=== PATIENT | male | born 1970 | race African-American/Black ===

== ENCOUNTER 2023-09-26 23:35 | Inpatient (IN) ==
[2023-09-27] MEDS: SODIUM CHLORIDE 0.9% 500 ML IV SCH ×2 (00:31→02:11)
[2023-09-27 00:44] LABS: Basophils # (auto) 0.05 K/uL (0.00-0.20); Basophils % (auto) 0.6 %; Eosinophils # (auto) 0.18 K/uL (0.00-0.50); Eosinophils % (auto) 2.1 %; Hematocrit (blood only) 44.9 % (42.0-52.0); Hemoglobin 15.7 g/dl (14.0-18.0); Immature Granulocytes # (auto) 0.03 K/uL (0.01-0.20); Immature Granulocytes % (auto) 0.4 %; Lymphocytes # (auto) 3.06 K/uL (1.20-3.40); Lymphocytes % (auto) 36.4 %; Mean Corpuscular Hemoglobin 29.6 pg (25.0-34.0); Mean Corpuscular Volume 84.7 fL (80.0-100.0); Mean Platelet Volume 11.6 fL (9.4-12.4); Monocytes # (auto) 0.27 K/uL (0.11-0.59); Monocytes % (auto) 3.2 %; Neutrophils # (auto) 4.82 K/uL (1.40-6.50); Neutrophils % (auto) 57.3 %; Platelet Count 273 K/uL (130-400); RDW Coefficient of Variation 13.6 % (11.5-14.5); White Blood Count 8.41 K/ul (4.8-10.8)
[2023-09-27 00:54] LABS: Albumin Globulin Ratio 1.5 (0.9-2); Albumin Level 4.8 gm/dl (3.4-5.0); BUN Creatinine Ratio 12.3 (10-20); Bilirubin,Total 0.4 mg/dl (0.2-1.0); Creatinine Clr Calc Pharmacy 113.9 ml/min; Est GFR (African American) 91.8 ml/min; Est GFR (Non-African American) 79.2 ml/min; Globulin 3.1 gm/dl (2.5-4.0); Potassium 4.2 mmol/L (3.5-5.1); Total Protein 7.9 gm/dl (6.0-8.3)
[2023-09-27 01:11] LABS: INR 0.9 (0.9-1.1); Partial Thromboplastin Time 28 Seconds (21-31); Prothrombin Time 10.3 Seconds (9.0-12.0)
[2023-09-27] MEDS ORDERED: SODIUM CHLORIDE 0.9% 500 ML IV ONE (02:04)
[2023-09-27] MEDS ORDERED: KETOROLAC TROMETHAMINE 15 MG/ML VIAL IV ONE (02:04)
[2023-09-27] MEDS ORDERED: METOPROLOL TARTRATE 1 MG/ML VIAL IV STA ×3 (02:04→03:46)
[2023-09-27 02:08] LABS: Magnesium 1.9 mg/dl (1.7-2.4)
[2023-09-27] MEDS ORDERED: SODIUM CHLORIDE 0.9% 1,000 ML IV SCH (02:15)
--- NOTE | 2023-09-27 03:41 | Emergency Department Note ---
Impression & Plan Atrial flutter with rapid ventricular response, Acute low back pain, Diabetes ED Provider Note NAME: JESSICA LANDERS AGE: 53 SEX: Male INFORMANT: Patient ED PROVIDER(S): Bismark Guevara MD CHIEF COMPLAINT: Palpitations PLAN: Disposition: Admitted Outpatient prescription management: none Referral: None MEDICAL DECISION MAKING: Patient presented because of palpitations and chest discomfort. He was found to have a rapid atrial flutter on examination and ECG. Cardiac monitoring concurred. Patient also noted concerning pain in his back and bladder dysfunction over the last several days. MRI was ordered. Patient was given Toradol. This did help his pain. Patient was given 3 doses of IV metoprolol and still have persistent heart rates of 140. Patient was also given a Cardizem bolus and drip. He is not stable to go to MRI at this point in time given his persistent tachycardia and need for treatment. Further management in the hospital will be necessary. Patient and are in agreement. Consultation was made with Dr. Ramon Bennett of the [facility] service. Patient was evaluated in the ER for further management. Care/management discussed with: dealer relationship manager Level of care consideration(s): After review of the information above and other included data, I feel the patient requires escalation of care to admission Triage Nursing notes: reviewed and agree them. Vital Signs: reviewed and remarkable for tachycardia Additional History obtained from: none Chronic Medical/Social Conditions affecting care: Diabetes Prior/ Outside/ External records reviewed: none Differential Diagnosis: Premature contractions, electrolyte abnormality, cardiac dysrhythmia, thyroid dysfunction, pulmonary embolism, infection, gastrointestinal, as well as other pathologies. Musculoskeletal, disc herniation, fracture, metastatic disease, cord compression, discitis, sciatica, cauda equina, infection, aortic disease, renal colic, gastrointestinal, as well as other pathologies. Diagnostics, independently interpreted by me: ECG: Lead ECG reveals atrial flutter rapid ventricular response at [address] elevation. Cardiac Monitoring: Cardiac monitoring ordered by me: The patient was placed on continuous cardiac monitoring and observed. It revealed atrial flutter at 140 bpm. Medical decision rules: none Imaging studies: Chest x-ray. Findings: A chest x-ray was performed and revealed no pneumothorax, effusion, infiltrate, pulmonary edema, free air under the diaphragm, or wide mediastinum. Impression: No acute disease. HPI: 53 year old Male arrives for evaluation of palpitations. This started about 3 hours ago and is noted to have woke patient from sleep. The patient also notes the following associated symptoms, left-sided chest pain, shortness of breath. Patient states he is also had lower lumbar back pain for about a week that has been escalating. He rated that as an 8 out of 10. Patient states he has been taking Tylenol without success. Patient notes that he is having difficulty ambulating and has noted having trouble controlling his bladder over the last few days. Patient notes chronic numbness in the lower extremities secondary to diabetic neuropathy. He feels generally weak in the legs but no focal complaints. Pt denies LOC, headache, fevers, chills, diaphoresis, visual changes, neck pain, nausea, vomiting, abdominal pain, saddle anesthesia, melena, hematochezia, urinary symptoms, lymphadenopathy, rash, or other complaints. . PAST MEDICAL HISTORY: See Below, diabetes PAST SURGICAL HISTORY: See Below, SOCIAL HISTORY: See Below, HOME MEDICATIONS: See Below ALLERGIES: See Below VITALS: See Below PHYSICAL EXAMINATION: GENERAL: Awake, alert, uncomfortable-appearing, in no distress HENT: Normocephalic, atraumatic. Oropharynx unremarkable. EYES: Normal conjunctiva. Sclera non-icteric. NECK: Inspection normal. Non-tender. Supple. No nuchal rigidity. FROM. No masses. RESPIRATORY: Clear to auscultation. No wheezes. No rales. Normal respiratory effort. CARDIAC: Tachycardic rate. Normal rhythm. No murmurs. No rubs. Extremities warm and well perfused. Pulses equal. No JVD. GI: Soft, non-distended. No tenderness to palpation. No rebound or guarding. No masses. RECTAL: Deferred. MUSCULOSKELETAL: Atraumatic. Chest examination reveals no tenderness. The back is symmetrical on inspection without obvious abnormality. No lumbar midline tenderness. There is no CVA tenderness to palpation. No joint edema. LOWER EXTREMITIES: Calves are equal size bilaterally and non-tender. No edema. No discoloration. NEURO: Normal sensorium. Subjective decrease sensation in the lower extremities which patient states is chronic. No saddle anesthesia. SKIN: No rash or jaundice noted. PROCEDURES: none CRITICAL CARE: I have personally spent 35 minutes of critical care time in the direct management of this patient. This includes bedside care, interpretation of diagnostic studies, and testing, discussion with consultants, patient, and family members, and other required patient management activities. These minutes are in excess of all separately billable procedures. OBSERVATION NOTE: none Past Med/Surg History Medical History (Updated 09/27/23 @ 03:41 by Bismark Guevara MD) Hyperlipidemia History of COVID-19 diagnosed 08/30/21 @ [place]--mild symptoms--no residual symptoms H/O staphylococcal infection left foot Blind right eye Neuropathy Hypertension Type 2 diabetes mellitus Surgical History History of incision and drainage left foot History of tooth extraction Hx of LASIK History of eye surgery right Family History Father Myocardial infarction Hypertension Grandfather (Paternal) Myocardial infarction Mother Diabetes Grandmother (Maternal) Ovarian cancer Other No family history of adverse response to anesthesia Denies family history of Prostate cancer Breast cancer Colorectal cancer Social History Smoking Status: Never smoker Second Hand Exposure: No; Do You Dip or Chew Tobacco: No; Hx Alcohol Use: Yes Alcohol type: beer Alcohol Intake Frequency: 4 or More x per/Week Hx Substance Use: No Preferred Language: Bruneian Communication Ability: Effective Visual Impairment: Partially Limited Hearing Ability: Normal Freight Manager Required: No Beliefs That Will Affect Care: None marital status: Current Living Situation: Spouse current occupational status: employed 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-[employer] How many Children do You have: 2 Feels Safe at Home: Yes Childhood Exposure to Second-Hand Smoke: No Diet: regular caffeine: Yes during the past year weight has: increased > 10 lbs Dental Care, Regularly: Yes Physical Activity Frequency: Daily Seatbelt Use: always Sunscreen Use: Yes Assistive Devices: Denture - Upper and Glasses Allergies Allergies Allergy/AdvReac Type Severity Reaction Status Date / Time No Known Allergies Allergy Verified 09/04/23 15:01 Home Meds Home Medications Medication Instructions Recorded Confirmed aspirin 81 mg tablet,delayed 81 mg PO QAM 12/29/21 09/27/23 release carvedilol 6.25 mg tablet 3.125 mg PO BID 09/27/23 09/27/23 metformin 1,000 mg tablet 1,000 mg PO BID 09/27/23 09/27/23 Previous Rx's Medication Instructions Recorded insulin aspart U-100 100 unit/mL 10 unit (0.1 mL) subcut TID #3 mL 10/24/21 (3 mL) subcutaneous pen (Novolog FlexPen U-100 Insulin aspart) tadalafil 10 mg tablet (Cialis) 10 mg PO DAILY #90 tabs 04/10/22 sildenafil 100 mg tablet 100 mg PO DAILY PRN sexual 05/02/22 activity 90 days #18 tabs hydrochlorothiazide 25 mg tablet 25 mg PO QAM #90 tabs 08/15/22 lisinopril 40 mg tablet 40 mg PO QAM #90 tabs 08/15/22 pantoprazole 40 mg tablet,delayed 40 mg PO QAM #90 tabs 09/13/22 release insulin glargine 100 unit/mL (3 35 unit (0.35 mL) subcut BID #45 mL 10/16/22 mL) subcutaneous pen (Lantus Solostar U-100 Insulin) metformin 500 mg tablet 1,000 mg (2 x 500 mg) PO BID #180 10/23/22 tabs atorvastatin 40 mg tablet 40 mg PO QPM #90 tabs 09/04/23 propranolol 20 mg tablet 20 mg PO BID #60 tabs 09/04/23 Results & Data (ED) Vital Signs Vital Signs - 24 hr 09/27/23 00:04 09/27/23 00:47 09/27/23 00:47 Temperature 36.5 C Temperature Source Temporal Artery Scan Pulse Rate 141 H Pulse Rate [Apical] 138 H Respiratory Rate 22 18 Respiratory Effort / Characteristics Non-Labored Spontaneous Non-Labored Respiratory Depth Normal Normal Respiratory Pattern Regular Blood Pressure 139/105 H Blood Pressure [Right Arm] 162/122 H Blood Pressure Mean 116 Blood Pressure Mean [Right Arm] 135 Pulse Oximetry 97 96 96 Oxygen Delivery Method Room Air Room Air Room Air Sepsis Recent Fever Within 48 Hours No Sepsis New/Unexplained Change in Mental Status No Sepsis Action Taken by Nursing No Action Required 09/27/23 00:51 09/27/23 00:52 09/27/23 01:00 Temperature Temperature Source Pulse Rate 138 H 140 H 139 H Pulse Rate [Apical] Respiratory Rate 24 18 Respiratory Effort / Characteristics Respiratory Depth Respiratory Pattern Blood Pressure 148/90 H Blood Pressure [Right Arm] Blood Pressure Mean 109 Blood Pressure Mean [Right Arm] Pulse Oximetry 97 96 Oxygen Delivery Method Room Air Room Air Sepsis Recent Fever Within 48 Hours Sepsis New/Unexplained Change in Mental Status Sepsis Action Taken by Nursing 09/27/23 01:30 09/27/23 02:00 09/27/23 02:16 Temperature Temperature Source Pulse Rate 142 H 141 H 143 H Pulse Rate [Apical] Respiratory Rate 15 22 Respiratory Effort / Characteristics Respiratory Depth Respiratory Pattern Blood Pressure 113/81 144/98 H 144/98 H Blood Pressure [Right Arm] Blood Pressure Mean 91 113 Blood Pressure Mean [Right Arm] Pulse Oximetry 97 99 Oxygen Delivery Method Room Air Room Air Sepsis Recent Fever Within 48 Hours Sepsis New/Unexplained Change in Mental Status Sepsis Action Taken by Nursing 09/27/23 02:30 09/27/23 02:33 09/27/23 02:37 Temperature Temperature Source Pulse Rate 138 H 137 H 137 H Pulse Rate [Apical] Respiratory Rate 22 Respiratory Effort / Characteristics Respiratory Depth Respiratory Pattern Blood Pressure 118/87 118/87 118/87 Blood Pressure [Right Arm] Blood Pressure Mean 97 Blood Pressure Mean [Right Arm] Pulse Oximetry 99 Oxygen Delivery Method Room Air Sepsis Recent Fever Within 48 Hours Sepsis New/Unexplained Change in Mental Status Sepsis Action Taken by Nursing 09/27/23 03:00 09/27/23 03:14 09/27/23 03:15 Temperature Temperature Source Pulse Rate 134 H 139 H 139 H Pulse Rate [Apical] Respiratory Rate 28 H 24 Respiratory Effort / Characteristics Respiratory Depth Respiratory Pattern Blood Pressure 117/92 117/92 Blood Pressure [Right Arm] Blood Pressure Mean 100 Blood Pressure Mean [Right Arm] Pulse Oximetry 100 Oxygen Delivery Method Room Air Sepsis Recent Fever Within 48 Hours Sepsis New/Unexplained Change in Mental Status Sepsis Action Taken by Nursing 09/27/23 03:30 09/27/23 03:48 09/27/23 03:53 Temperature Temperature Source Pulse Rate 139 H 142 H 141 H Pulse Rate [Apical] Respiratory Rate 16 15 Respiratory Effort / Characteristics Respiratory Depth Respiratory Pattern Blood Pressure 102/81 112/84 112/84 Blood Pressure [Right Arm] Blood Pressure Mean 88 93 Blood Pressure Mean [Right Arm] Pulse Oximetry 96 Oxygen Delivery Method Room Air Sepsis Recent Fever Within 48 Hours Sepsis New/Unexplained Change in Mental Status Sepsis Action Taken by Nursing 09/27/23 04:00 09/27/23 04:24 09/27/23 04:30 Temperature Temperature Source Pulse Rate 140 H 140 H 140 H Pulse Rate [Apical] Respiratory Rate 16 17 Respiratory Effort / Characteristics Respiratory Depth Respiratory Pattern Blood Pressure 133/88 133/88 108/90 Blood Pressure [Right Arm] Blood Pressure Mean 103 96 Blood Pressure Mean [Right Arm] Pulse Oximetry 94 98 Oxygen Delivery Method Room Air Room Air Sepsis Recent Fever Within 48 Hours Sepsis New/Unexplained Change in Mental Status Sepsis Action Taken by Nursing 09/27/23 04:58 09/27/23 05:00 Temperature Temperature Source Pulse Rate 140 H 140 H Pulse Rate [Apical] Respiratory Rate 20 Respiratory Effort / Characteristics Respiratory Depth Respiratory Pattern Blood Pressure 120/91 Blood Pressure [Right Arm] Blood Pressure Mean 100 Blood Pressure Mean [Right Arm] Pulse Oximetry Oxygen Delivery Method Sepsis Recent Fever Within 48 Hours Sepsis New/Unexplained Change in Mental Status Sepsis Action Taken by Nursing Laboratory Data 09/27/23 00:20 09/27/23 00:20 Lab Results 09/27/23 Range/Units 00:20 WBC 8.41 (4.8-10.8) K/ul RBC 5.30 (4.70-6.10) M/uL Hgb 15.7 (14.0-18.0) g/dl Hct 44.9 (42.0-52.0) % MCV 84.7 (80.0-100.0) fL MCH 29.6 (25.0-34.0) pg MCHC 35.0 (32.0-36.0) g/dL RDW Std Deviation 42.0 (36.4-46.3) fL RDW Coeff of Amberly 13.6 (11.5-14.5) % Plt Count 273 (130-400) K/uL MPV 11.6 (9.4-12.4) fL Immature Gran % (Auto) 0.4 % Neut % (Auto) 57.3 % Lymph % (Auto) 36.4 % [place] % (Auto) 3.2 % Eos % (Auto) 2.1 % Baso % (Auto) 0.6 % Neut # (Auto) 4.82 (1.40-6.50) K/uL Lymph # (Auto) 3.06 (1.20-3.40) K/uL [place] # (Auto) 0.27 (0.11-0.59) K/uL Eos # (Auto) 0.18 (0.00-0.50) K/uL Baso # (Auto) 0.05 (0.00-0.20) K/uL Immature Gran # (Auto) 0.03 (0.01-0.20) K/uL PT 10.3 (9.0-12.0) Seconds INR 0.9 (0.9-1.1) APTT 28 (21-31) Seconds PTT Ratio 1.0 Sodium 137 (136-145) mmol/L Potassium 4.2 (3.5-5.1) mmol/L Chloride 100 (98-107) mmol/L Carbon Dioxide 28 (21-32) mmol/L Anion Gap 9 (3-11) BUN 13 (6-23) mg/dl Creatinine 1.06 (0.6-1.4) mg/dl Est Cr Clr Drug Dosing 113.9 ml/min Est GFR ( Amer) 91.8 ml/min Est GFR (Non-Af Amer) 79.2 ml/min BUN/Creatinine Ratio 12.3 (10-20) Glucose 286 H (70-99(Fasting)) mg/dl Calcium 10.0 (8.6-10.3) mg/dl Magnesium 1.9 (1.7-2.4) mg/dl Total Bilirubin 0.4 (0.2-1.0) mg/dl AST 27 (13-39) U/L ALT 28 (7-52) U/L Alkaline Phosphatase 83 (34-104) U/L Troponin I High Sens 8.0 (0-20) pg/ml Total Protein 7.9 (6.0-8.3) gm/dl Albumin 4.8 (3.4-5.0) gm/dl Globulin 3.1 (2.5-4.0) gm/dl Albumin/Globulin Ratio 1.5 (0.9-2) Administered Medications Amiodarone HCl/Dextrose (Nexterone / D5w) 360 mg in 200 mls @ 33.333 mls/hr IV ONE ONE Stop: 09/27/23 11:59 Last Admin: 09/27/23 06:26 Dose: 1 mg/min, 33.3 mls/hr Documented By: AKASH Co-signed By: MIGUELANGEL Heparin Sodium/Dextrose (Heparin Sodium/Dextrose) 25,000 units in 500 mls @ 36 mls/hr IV .[id number] ANTOINE; Protocol Stop: 10/27/23 06:14 Last Admin: 09/27/23 06:50 Dose: 1,800 units/hr, 36 mls/hr Documented By: AKASH Co-signed By: YOLIE Potassium Chloride/Sodium Chloride (Normal Saline W/20 Meq Kcl) 20 meq in 1,000 mls @ 100 mls/hr IV .Q10H ANTOINE Stop: 09/27/23 16:20 Last Admin: 09/27/23 06:50 Dose: 100 mls/hr Documented By: AKASH Discontinued Medications Diltiazem HCl (Diltiazem Hcl 5 Mg/Ml 5 Ml Vial) 10 mg IV NOW STA Stop: 09/27/23 04:28 Last Admin: 09/27/23 04:51 Dose: 10 mg Documented By: MIGUELANGEL Co-signed By: AKASH Heparin Sodium/Dextrose (Heparin Iv Adult Wt-Based Standard W/ Initial Bolus Protocol) 1 each IV NOW STA; Protocol Stop: 09/27/23 05:49 Last Admin: 09/27/23 06:57 Dose: Not Given Documented By: AKASH Sodium Chloride (Nss) 500 mls @ 999 mls/hr IV .Q31M ANTOINE Stop: 09/27/23 01:00 Last Admin: 09/27/23 02:11 Dose: Not Given Documented By: AKASH Sodium Chloride (Nss) 500 mls @ 999 mls/hr IV .Q31M ONE Stop: 09/27/23 02:34 Last Infusion: 09/27/23 03:00 Dose: Infused Documented By: Admin: 09/27/23 02:17 Dose: 999 mls/hr Documented By: AKASH Sodium Chloride (Nss) 1,000 mls @ 125 mls/hr IV .Q8H ANTOINE Stop: 10/27/23 02:14 Last Infusion: 09/27/23 06:51 Dose: 0 mls/hr Documented By: Admin: 09/27/23 03:30 Dose: 125 mls/hr Documented By: AKASH Diltiazem HCl 125 mg/ Dextrose 125 mls @ 5 mls/hr IV .Q24H ANTOINE; Protocol Stop: 10/27/23 04:29 Last Admin: 09/27/23 05:55 Dose: Not Given Documented By: AKASH Sodium Chloride (Nss) 1,000 mls @ 999 mls/hr IV .Q1H1M ONE Stop: 09/27/23 05:55 Last Infusion: 09/27/23 06:29 Dose: Infused Documented By: Admin: 09/27/23 05:17 Dose: 999 mls/hr Documented By: AKASH Magnesium Sulfate/Dextrose (Magnesium Sulfate / D5w) 1 gm in 100 mls @ 50 mls/hr IV ONE ONE Stop: 09/27/23 07:14 Last Admin: 09/27/23 05:17 Dose: 50 mls/hr Documented By: AKASH Amiodarone HCl/Dextrose (Nexterone / D5w) 150 mg in 100 mls @ 600 mls/hr IV NOW STA Stop: 09/27/23 05:58 Last Infusion: 09/27/23 06:27 Dose: Infused Documented By: AKASH Co-signed By: MIGUELANGEL Admin: 09/27/23 06:11 Dose: 600 mls/hr Documented By: AKASH Co-signed By: YOLIE Ketorolac Tromethamine (Ketorolac Tromethamine 15 Mg/Ml Vial) 10 mg IV NOW ONE Stop: 09/27/23 02:05 Last Admin: 09/27/23 02:16 Dose: 10 mg Documented By: AKASH Metoprolol Tartrate (Metoprolol Tartrate 1 Mg/Ml Vial) 5 mg IV NOW STA Stop: 09/27/23 02:05 Last Admin: 09/27/23 02:16 Dose: 5 mg Documented By: AKASH Metoprolol Tartrate (Metoprolol Tartrate 1 Mg/Ml Vial) 5 mg IV NOW STA Stop: 09/27/23 02:33 Last Admin: 09/27/23 02:37 Dose: 5 mg Documented By: AKASH Metoprolol Tartrate (Metoprolol Tartrate 1 Mg/Ml Vial) 5 mg IV NOW STA Stop: 09/27/23 03:47 Last Admin: 09/27/23 03:53 Dose: 5 mg Documented By: AKASH Potassium Chloride (Potassium Chloride Crtab 20 Meq Tabcr) 40 meq PO NOW ONE Stop: 09/27/23 05:16 Last Admin: 09/27/23 05:17 Dose: 40 meq Documented By: AKASH Imaging Data Radiologist's Impression: Chest X-Ray 09/27/23 00:06 XR chest 1V not portable CLINICAL HISTORY: Chest pain, nonspecific. COMPARISON STUDY: Chest radiograph May 05, 2023. FINDINGS: Patient is rotated. No pneumothorax or pleural effusion is present. There is mild enlargement of the cardiac silhouette without evidence for pulmonary edema. There is no consolidation to suggest pneumonia. IMPRESSION: No acute cardiopulmonary findings. Rotated study. ACT 112: Negative or not required by law. Electronically signed by: Jose E Borjas M.D. 09/27/2023 7:07 AM Discharge Plan Visit Data Chief Complaint: Arrhythmia/Palpitations Stated Complaint: HEART PALP ED Provider: Bismark Guevara Discharge Problem: Atrial flutter with rapid ventricular response, Acute low back pain, Diabetes Patient Disposition: Admitted As Inpatient Discharge Instructions Interventions: ED Discharge Assessment Last Done: 09/27/23 06:21
[2023-09-27] MEDS ORDERED: STAT IV Infusion **Titration per Protocol STA ×2 (04:27→05:49)
[2023-09-27] MEDS ORDERED: dilTIAZem HCl 5 MG/ML 5 ML VIAL IV STA (04:27)
[2023-09-27] MEDS ORDERED: dilTIAZem HCL 125 MG in DEXTROSE 5% 100 ML IV SCH (04:30)
[2023-09-27] MEDS ORDERED: SODIUM CHLORIDE 0.9% 1,000 ML IV ONE (04:55)
[2023-09-27] MEDS ORDERED: MAGNESIUM SULFATE / D5W 1 GM/100 ML BAG IV ONE (05:15)
[2023-09-27] MEDS ORDERED: POTASSIUM CHLORIDE CRTAB 20 MEQ TABCR PO ONE (05:15)
--- NOTE | 2023-09-27 05:19 | History & Physical Report ---
Date of Service September 27, 2023 Assessment & Plan (1) Atrial flutter with rapid ventricular response: (2) Diabetes: (3) Hyperlipidemia: (4) Type 2 diabetes mellitus: (5) Hypertension: History of Present Illness Chief Complaint: The patient presents to the emergency department with complaint of acute onset of rapid heart rate around 1030 this evening as he was going to bed. Primary Care Provider: Victor Manuel Diallo DO The patient is a 53-year-old male with a past medical history including cardiomyopathy 10 years ago, hyperlipidemia, diabetes mellitus type 2, hypertension, peripheral neuropathy, blind right eye, GERD, ED and obesity. He has followed with Dr. Johnson in the outpatient setting due to concerns regarding his history of cardiomyopathy. He did undergo an echocardiogram on 07/11/2023 which showed an EF of 50-55%, and no suggestion of cardiomyopathy at that time, indicating resolution of previous noted cardiomyopathy from 10 years previously. In the emergency department this evening, he was noted to be in atrial flutter with heart rate in the 148-150 range persistently, with systolic blood pressure at that point around 108. The patient did not respond to Lopressor 5 mg IV x 3, from the ED, and was then referred for evaluation for admission to the hospitalist service. Allergies Allergy/AdvReac Type Severity Reaction Status Date / Time No Known Allergies Allergy Verified 09/04/23 15:01 Home Medications Medication Instructions Recorded Confirmed Type insulin aspart U-100 100 unit/mL 10 unit (0.1 mL) subcut TID #3 mL 10/24/21 09/04/23 Rx (3 mL) subcutaneous pen (Novolog FlexPen U-100 Insulin aspart) aspirin 81 mg tablet,delayed 81 mg PO QAM 12/29/21 09/27/23 History release tadalafil 10 mg tablet (Cialis) 10 mg PO DAILY #90 tabs 04/10/22 09/04/23 Rx sildenafil 100 mg tablet 100 mg PO DAILY PRN sexual 05/02/22 09/27/23 Rx activity 90 days #18 tabs hydrochlorothiazide 25 mg tablet 25 mg PO QAM #90 tabs 08/15/22 09/27/23 Rx lisinopril 40 mg tablet 40 mg PO QAM #90 tabs 08/15/22 09/04/23 Rx pantoprazole 40 mg tablet,delayed 40 mg PO QAM #90 tabs 09/13/22 09/04/23 Rx release insulin glargine 100 unit/mL (3 35 unit (0.35 mL) subcut BID #45 mL 10/16/22 09/04/23 Rx mL) subcutaneous pen (Lantus Solostar U-100 Insulin) metformin 500 mg tablet 1,000 mg (2 x 500 mg) PO BID #180 10/23/22 09/04/23 Rx tabs atorvastatin 40 mg tablet 40 mg PO QPM #90 tabs 09/04/23 09/04/23 Rx propranolol 20 mg tablet 20 mg PO BID #60 tabs 09/04/23 09/04/23 Rx carvedilol 6.25 mg tablet 3.125 mg PO BID 09/27/23 09/27/23 History metformin 1,000 mg tablet 1,000 mg PO BID 09/27/23 09/27/23 History Past Med/Surg History Medical History (Updated 09/27/23 @ 03:41 by Bismark Guevara MD) Hyperlipidemia History of COVID-19 diagnosed [place]30/21 @ [place]--mild symptoms--no residual symptoms H/O staphylococcal infection left foot Blind right eye Neuropathy Hypertension Type 2 diabetes mellitus Surgical History History of incision and drainage left foot History of tooth extraction Hx of LASIK History of eye surgery right Family History Father Myocardial infarction Hypertension Grandfather (Paternal) Myocardial infarction Mother Diabetes Grandmother (Maternal) Ovarian cancer Other No family history of adverse response to anesthesia Denies family history of Prostate cancer Breast cancer Colorectal cancer Social History Smoking Status: Never smoker Second Hand Exposure: No; Do You Dip or Chew Tobacco: No; Hx Alcohol Use: Yes Alcohol type: beer Alcohol Intake Frequency: 4 or More x per/Week Hx Substance Use: No Preferred Language: Lithuanian Communication Ability: Effective Visual Impairment: Partially Limited Hearing Ability: Normal Machine Packager Required: No Beliefs That Will Affect Care: None marital status: Current Living Situation: Spouse current occupational status: employed 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[employer] How many Children do You have: 2 Feels Safe at Home: Yes Childhood Exposure to Second-Hand Smoke: No Diet: regular caffeine: Yes during the past year weight has: increased > 10 lbs Dental Care, Regularly: Yes Physical Activity Frequency: Daily Seatbelt Use: always Sunscreen Use: Yes Assistive Devices: Denture - Upper and Glasses Review of Systems Review of Systems: The patient denies chest pain, palpitations, shortness of breath, dyspnea on exertion, cough, lower extremity swelling, sore throat, fevers, chills, sweats, weight change, fatigue, nausea, vomiting, diarrhea , constipation, abdominal pain, pelvic pain, blood in urine or stool, dysuria, urinary frequency or urgency, lightheadedness, dizziness, headache, memory loss, loss of consciousness, rash, abnormal bruising or bleeding, imbalance, focal or generalized weakness, numbness or tingling in arms or legs, generalized arthralgias or myalgias, back or neck pain, or night sweats. The review of systems is otherwise negative other than for that already noted a karen, and at least 10 systems have been reviewed. Physical Exam Physical Exam: The patient is awake, alert and oriented 3, well developed and well nourished, normocephalic and atraumatic, lying in bed and in no acute distress. HEENT--PERRL, EOMI, mucous membranes and oropharynx moderately dry Neck--supple. No JVD. No bruits. Thyroid normal, trachea midline, no adenopathy. Heart--tachycardic and regular. No murmurs, rubs or gallops. Lungs--clear bilaterally, no respiratory distress, no accessory muscle use. Abdomen--normal bowel sounds and soft. Nontender. Nondistended. Mildly obese Extremities--no cyanosis or clubbing. No edema. Dermatologic--normal skin turgor, normal color, no abnormal lymph nodes, no rash. Neurologic--cranial nerves II through XII grossly intact. Rheumatologic--normal range of motion. Psychiatric--normal affect. Results & Data Results & Data Vital Signs (Past 12 Hours) Vital Signs Temp Pulse Pulse Resp BP BP Pulse Ox 09/27/23 05:00 140 H 20 120/91 09/27/23 04:58 140 H 09/27/23 04:30 140 H 17 108/90 98 09/27/23 04:24 140 H 133/88 09/27/23 04:00 140 H 16 133/88 94 09/27/23 03:53 141 H 112/84 09/27/23 03:48 142 H 15 112/84 96 09/27/23 03:30 139 H 16 102/81 09/27/23 03:15 139 H 117/92 09/27/23 03:14 139 H 24 117/92 100 09/27/23 03:00 134 H 28 H 09/27/23 02:37 137 H 118/87 09/27/23 02:33 137 H 118/87 09/27/23 02:30 138 H 22 118/87 99 09/27/23 02:16 143 H 144/98 H 09/27/23 02:00 141 H 22 144/98 H 99 09/27/23 01:30 142 H 15 113/81 97 09/27/23 01:00 139 H 18 148/90 H 96 09/27/23 00:52 140 H 24 97 09/27/23 00:51 138 H 09/27/23 00:47 138 H 18 162/122 H 96 09/27/23 00:47 96 09/27/23 00:04 36.5 C 141 H 22 139/105 H 97 O2 Del Method 09/27/23 05:00 09/27/23 04:58 09/27/23 04:30 Room Air 09/27/23 04:24 09/27/23 04:00 Room Air 09/27/23 03:53 09/27/23 03:48 Room Air 09/27/23 03:30 09/27/23 03:15 09/27/23 03:14 Room Air 09/27/23 03:00 09/27/23 02:37 09/27/23 02:33 09/27/23 02:30 Room Air 09/27/23 02:16 09/27/23 02:00 Room Air 09/27/23 01:30 Room Air 09/27/23 01:00 Room Air 09/27/23 00:52 Room Air 09/27/23 00:51 09/27/23 00:47 Room Air 09/27/23 00:47 Room Air 09/27/23 00:04 Room Air Laboratory Results Laboratory Results WBC 8.41 K/ul (4.8-10.8) 09/27/23 00:20 RBC 5.30 M/uL (4.70-6.10) 09/27/23 00:20 Hgb 15.7 g/dl (14.0-18.0) 09/27/23 00:20 Hct 44.9 % (42.0-52.0) 09/27/23 00:20 MCV 84.7 fL (80.0-100.0) 09/27/23 00:20 MCH 29.6 pg (25.0-34.0) 09/27/23 00:20 MCHC 35.0 g/dL (32.0-36.0) 09/27/23 00:20 RDW Std Deviation 42.0 fL (36.4-46.3) 09/27/23 00:20 RDW Coeff of Amberly 13.6 % (11.5-14.5) 09/27/23 00:20 Plt Count 273 K/uL (130-400) 09/27/23 00:20 MPV 11.6 fL (9.4-12.4) 09/27/23 00:20 Immature Gran % (Auto) 0.4 % 09/27/23 00:20 Neut % (Auto) 57.3 % 09/27/23 00:20 Lymph % (Auto) 36.4 % 09/27/23 00:20 [place] % (Auto) 3.2 % 09/27/23 00:20 Eos % (Auto) 2.1 % 09/27/23 00:20 Baso % (Auto) 0.6 % 09/27/23 00:20 Neut # (Auto) 4.82 K/uL (1.40-6.50) 09/27/23 00:20 Lymph # (Auto) 3.06 K/uL (1.20-3.40) 09/27/23 00:20 [place] # (Auto) 0.27 K/uL (0.11-0.59) 09/27/23 00:20 Eos # (Auto) 0.18 K/uL (0.00-0.50) 09/27/23 00:20 Baso # (Auto) 0.05 K/uL (0.00-0.20) 09/27/23 00:20 Immature Gran # (Auto) 0.03 K/uL (0.01-0.20) 09/27/23 00:20 PT 10.3 Seconds (9.0-12.0) 09/27/23 00:20 INR 0.9 (0.9-1.1) 09/27/23 00:20 APTT 28 Seconds (21-31) 09/27/23 00:20 PTT Ratio 1.0 09/27/23 00:20 Sodium 137 mmol/L (136-145) 09/27/23 00:20 Potassium 4.2 mmol/L (3.5-5.1) 09/27/23 00:20 Chloride 100 mmol/L (98-107) 09/27/23 00:20 Carbon Dioxide 28 mmol/L (21-32) 09/27/23 00:20 Anion Gap 9 (3-11) 09/27/23 00:20 BUN 13 mg/dl (6-23) 09/27/23 00:20 Creatinine 1.06 mg/dl (0.6-1.4) 09/27/23 00:20 Est Cr Clr Drug Dosing 113.9 ml/min 09/27/23 00:20 Est GFR ( Amer) 91.8 ml/min 09/27/23 00:20 Est GFR (Non-Af Amer) 79.2 ml/min 09/27/23 00:20 BUN/Creatinine Ratio 12.3 (10-20) 09/27/23 00:20 Glucose 286 mg/dl (70-99(Fasting)) H 09/27/23 00:20 Calcium 10.0 mg/dl (8.6-10.3) 09/27/23 00:20 Magnesium 1.9 mg/dl (1.7-2.4) 09/27/23 00:20 Total Bilirubin 0.4 mg/dl (0.2-1.0) 09/27/23 00:20 AST 27 U/L (13-39) 09/27/23 00:20 ALT 28 U/L (7-52) 09/27/23 00:20 Alkaline Phosphatase 83 U/L (34-104) 09/27/23 00:20 Troponin I High Sens 8.0 pg/ml (0-20) 09/27/23 00:20 Total Protein 7.9 gm/dl (6.0-8.3) 09/27/23 00:20 Albumin 4.8 gm/dl (3.4-5.0) 09/27/23 00:20 Globulin 3.1 gm/dl (2.5-4.0) 09/27/23 00:20 Albumin/Globulin Ratio 1.5 (0.9-2) 09/27/23 00:20 Impressions Chest X-Ray 09/27/23 00:06 XR chest 1V not portable CLINICAL HISTORY: Chest pain, nonspecific. COMPARISON STUDY: Chest radiograph May 05, 2023. FINDINGS: Patient is rotated. No pneumothorax or pleural effusion is present. There is mild enlargement of the cardiac silhouette without evidence for pulmonary edema. There is no consolidation to suggest pneumonia. IMPRESSION: No acute cardiopulmonary findings. Rotated study. ACT 112: Negative or not required by law. Electronically signed by: Jose E Borjas M.D. 09/27/2023 7:07 AM Code Status & VTE Plan Code Status Full code VTE Prophylaxis Plan VTE Prophylaxis will be ordered: Yes Supervising Physician Co-Signing Physician Notes Atrial flutter with RVR/hypertension- The patient will be admitted to telemetry for serial cardiac enzymes, serial EKG's, cardiac rhythm monitoring Heart rate consistently under 148- 150 range, with systolic blood pressure in the 108 range. EKG with atrial flutter at [address]-T changes Patient did receive Lopressor 5 mg IV x 3 from the ED, and had received 500 mL normal saline IV bolus x 2. Patient was then given a liter bolus of normal saline, 1 g magnesium sulfate IV, and Klor-Con 40 mill equivalents p.o. He then was given diltiazem 10 mg IV push, with heart rate consistently remaining in the 140-145 range Patient was started on heparin drip standard dose without bolus He was then placed on amiodarone bolus/drip protocol Consult to cardiology, Dr. Rey is on-call for the group Echocardiogram was most recent performed on 07/11/2023, with ejection fraction 50-55% Will hold HCTZ, and decrease lisinopril from 40 mg to 20 mg every morning, to allow blood pressure room for increasing negative inotropes Continue carvedilol 3.125 mg p.o. twice daily for now, and can be adjusted based on response to amiodarone Of note, patient is not on propranolol 20 mg p.o. twice daily Continue aspirin 81 mg every morning Dehydration- Holding HCTZ as noted Will have received a total of 2 L normal saline between the ED and my orders, and would likely need to have more as well NSS + KCl 20 mill equivalents at 80 mL/h Diabetes mellitus- Hold metformin Reduce glargine from 35 to 25 units subcu twice daily while in hospital Placed on Accu-Cheks with NovoLog SSI GERD- Continue pantoprazole 40 mg daily PG Care Time/CCT Total # of Minutes Spent Total Time Spent with Patient: Total time spent is greater than 50% in coordination of care (as documented) at patient's floor/unit and/or counseling patient: Coding Level of Care Code 10257 INT INP/OBS CARE 375MIN Diagnoses Atrial flutter with rapid ventricular response I48.92 Diabetes E11.9 Hyperlipidemia E78.5 Type 2 diabetes mellitus E11.9 Hypertension I10
[2023-09-27] MEDS ORDERED: Heparin IV Adult Wt-Based Standard *NO* INITIAL Bolus Protocol IV STA (05:48)
[2023-09-27] MEDS ORDERED: Heparin IV Adult Wt-Based Standard w/ INITIAL Bolus Protocol IV STA (05:48)
[2023-09-27] MEDS ORDERED: AMIODARONE IV BOLUS & DRIP IV STA (05:49)
[2023-09-27] MEDS ORDERED: 0.2 MICRON FILTER SET 1 EACH IV STA (05:49)
[2023-09-27] MEDS ORDERED: AMIODARONE / D5W 150 MG/100 ML BAG IV STA (05:49)
[2023-09-27] MEDS ORDERED: AMIODARONE / D5W 360 MG/200 ML BAG IV ONE (06:00)
[2023-09-27] MEDS ORDERED: HEPARIN SODIUM/DEXTROSE 25,000 UNITS/500 ML BAG IV SCH (06:15)
[2023-09-27] MEDS ORDERED: ACETAMINOPHEN 325 MG TAB PO PRN (06:21)
[2023-09-27] MEDS ORDERED: DEXTROSE 50% 50 ML SYRINGE IV PRN (06:21)
[2023-09-27] MEDS ORDERED: CARBOHYDRATES FOR HYPOGLYCEMIA PO PRN (06:21)
[2023-09-27] MEDS ORDERED: GLUCOSE 40% GEL 15 GM TUBE PO PRN (06:21)
[2023-09-27] MEDS ORDERED: NSS + 20MEQ KCL 20 MEQ/1,000 ML BAG IV SCH (06:21)
[2023-09-27] MEDS ORDERED: GLUCAGON FOR INJ 1 MG VIAL SQ PRN (06:21)
[2023-09-27] MEDS ORDERED: GLUCOSE 10 TAB/TUBE PO PRN (06:21)
[2023-09-27] MEDS ORDERED: ONDANSETRON INJ 2 MG/ML 2 ML VIAL IV PRN (06:21)
--- NOTE | 2023-09-27 07:09 | XRay Report ---
XR chest 1V not portable CLINICAL HISTORY: Chest pain, nonspecific. COMPARISON STUDY: Chest radiograph May 05, 2023. FINDINGS: Patient is rotated. No pneumothorax or pleural effusion is present. There is mild enlargeme nt of the cardiac silhouette without evidence for pulmonary edema. There is no consolidation to sugge st pneumonia. IMPRESSION: No acute cardiopulmonary findings. Rotated study. ACT 112: Negative or not required by law. Electronically signed by: Jose E Borjas M.D. 09/27/2023 7:07 AM
[2023-09-27] MEDS ORDERED: carvediloL 3.125 MG TAB PO SCH (08:00)
[2023-09-27] MEDS ORDERED: lisinopril 20 MG TAB PO SCH (09:00)
[2023-09-27] MEDS ORDERED: LANTUS PER UNIT CHARGE SQ SCH ×2 (09:00→21:00)
[2023-09-27] MEDS ORDERED: PANTOprazole 40 MG TAB PO SCH (09:00)
[2023-09-27] MEDS ORDERED: ASPIRIN 81 MG ECTAB PO SCH (09:00)
[2023-09-27] MEDS: INSULIN ASPART PER UNIT CHARGE SC SCH ×2 (10:05→12:31)
[2023-09-27] MEDS ORDERED: INFLUENZA VIRUS QUADRIVALENT VACCINE (IIV4) 0.5 ML SYR IM ONE (11:44)
[2023-09-27] MEDS ORDERED: AMIODARONE / D5W 360 MG/200 ML BAG IV SCH (12:00)
[2023-09-27 13:29] LABS: ANTI-Xa, UFH(UnfractionatedHep 0.49 IU/ml (0.3-0.7)
--- NOTE | 2023-09-27 13:52 | Anesthesiology Consultation ---
Date of Service September 27, 2023 Assessment & Plan Chart Review Chart Review: Acceptable Risk for Surgery and Patient NOT seen in Pre Admission Testing Consults Requested none ASA ASA4 Proposed Anesthesia Anesthesia Type: General History Surgery Operation Date: 09/28/23 07:45 Proposed Procedures p Transesophageal Echo w/Anesthesia - Aman Johnson MD s Cardioversion Budder w/Anesthesia - Aman Johnson MD Height/Weight Height: 6 ft 5 in Weight: 143.5 kg Allergies Allergy/AdvReac Type Severity Reaction Status Date / Time No Known Allergies Allergy Verified 09/04/23 15:01 Medications Home Medications Medication Instructions Recorded Confirmed Last Taken insulin aspart U-100 100 unit/mL 10 unit (0.1 mL) subcut TID #3 mL 10/24/21 09/04/23 01/01/22 (3 mL) subcutaneous pen (Novolog FlexPen U-100 Insulin aspart) aspirin 81 mg tablet,delayed 81 mg PO QAM 12/29/21 09/27/23 01/01/22 release tadalafil 10 mg tablet (Cialis) 10 mg PO DAILY #90 tabs 04/10/22 09/04/23 Unknown sildenafil 100 mg tablet 100 mg PO DAILY PRN sexual 05/02/22 09/27/23 Unknown activity 90 days #18 tabs hydrochlorothiazide 25 mg tablet 25 mg PO QAM #90 tabs 08/15/22 09/27/23 Unknown lisinopril 40 mg tablet 40 mg PO QAM #90 tabs 08/15/22 09/04/23 Unknown pantoprazole 40 mg tablet,delayed 40 mg PO QAM #90 tabs 09/13/22 09/04/23 Unknown release insulin glargine 100 unit/mL (3 35 unit (0.35 mL) subcut BID #45 mL 10/16/22 09/04/23 Unknown mL) subcutaneous pen (Lantus Solostar U-100 Insulin) metformin 500 mg tablet 1,000 mg (2 x 500 mg) PO BID #180 10/23/22 09/04/23 Unknown tabs atorvastatin 40 mg tablet 40 mg PO QPM #90 tabs 09/04/23 09/04/23 Unknown propranolol 20 mg tablet 20 mg PO BID #60 tabs 09/04/23 09/04/23 Unknown carvedilol 6.25 mg tablet 3.125 mg PO BID 09/27/23 09/27/23 Unknown metformin 1,000 mg tablet 1,000 mg PO BID 09/27/23 09/27/23 Unknown Active Medications Generic Name Dose Route Start Last Admin Trade Name Nikolas PRN Reason Stop Dose Admin Aspirin 81 mg 09/27/23 09:00 09/27/23 09:58 Aspirin 81 Mg Ectab PO 10/27/23 08:59 81 mg QAM ANTOINE Administration Carvedilol 3.125 mg 09/27/23 08:00 09/27/23 09:56 Carvedilol 3.125 Mg Tab PO 10/27/23 07:59 3.125 mg BIDM ANTOINE Administration Amiodarone HCl/Dextrose 360 mg in 200 mls @ 16.667 mls/hr 09/27/23 12:00 09/27/23 11:51 Nexterone / D5w IV 10/27/23 11:59 0.5 mg/min .Q12H ANTOINE 16.7 mls/hr Administration 0.5 MG/MIN Heparin Sodium/Dextrose 25,000 units in 500 mls @ 36 mls/hr 09/27/23 06:15 09/27/23 06:50 Heparin Sodium/Dextrose IV 10/27/23 06:14 1,800 units/hr .[id number] ANTOINE 36 mls/hr Administration Protocol 1,800 UNITS/HR Potassium Chloride/Sodium Chloride 20 meq in 1,000 mls @ 100 mls/hr 09/27/23 06:21 09/27/23 06:50 Normal Saline W/20 Meq Kcl IV 09/27/23 16:20 100 mls/hr .Q10H ANTOINE Administration Insulin Aspart 0 units 09/27/23 07:30 09/27/23 12:31 Insulin Aspart Per Unit Charge SC 10/27/23 07:29 2 units ACHS ANTOINE Administration Lisinopril 20 mg 09/27/23 09:00 09/27/23 10:00 Lisinopril 20 Mg Tab PO 10/27/23 08:59 Not Given QAM ANTOINE Pantoprazole Sodium 40 mg 09/27/23 09:00 09/27/23 09:58 Pantoprazole 40 Mg Tab PO 10/27/23 08:59 40 mg QAM ANTOINE Administration Past Medical History Medical History Hyperlipidemia History of COVID-19 diagnosed 08/30/21 @ [place]--mild symptoms--no residual symptoms H/O staphylococcal infection left foot Blind right eye Neuropathy Hypertension Type 2 diabetes mellitus Exercise / Class Metabolic Activity III < 4 Walking/Shop/Light housework Past Family History Family History Father Myocardial infarction Hypertension Grandfather (Paternal) Myocardial infarction Mother Diabetes Grandmother (Maternal) Ovarian cancer Other No family history of adverse response to anesthesia Denies family history of Prostate cancer Breast cancer Colorectal cancer Past Surgical History Surgical History History of incision and drainage left foot History of tooth extraction Hx of LASIK History of eye surgery right Past Anesthesia History No Hx of Anesthesia Complications and No Family Hx of Anesthesia Complications History of PONV No Hx of PONV and No Hx of Motion Sickness Social History Smoking Status: Former smoker Do You Dip or Chew Tobacco: No Hx Alcohol Use: Yes Alcohol type: beer and hard liquor alcohol intake frequency: a few times a month Hx Substance Use: No substance use type: does not use Physical Exam Vital Signs Last Vital Signs Temp 36.5 C 09/27/23 10:58 Pulse 136 H 09/27/23 10:58 Resp 19 09/27/23 10:58 BP 137/93 09/27/23 10:58 Pulse Ox 99 09/27/23 10:58 O2 Del Method Room Air 09/27/23 11:08 Testing Laboratory Results 09/27/23 00:20 09/27/23 00:20 PT 10.3 Seconds (9.0-12.0) 09/27/23 00:20 INR 0.9 (0.9-1.1) 09/27/23 00:20 APTT 28 Seconds (21-31) 09/27/23 00:20 09/27/23 09/27/23 11:43 09:58 POC Glucose 173 H 169 H Electrocardiogram Date: 09/27/23 Findings: + AFIB @ (AFlutter @ 148 w/ RVR and premature SVC's) Chest X-Ray Date: 09/27/23 Findings: + NAD and + cardiomegaly (mild) Echocardiogram Date: 07/11/23 EF: 50% LV Function: normal RWMA: + none Other Findings: + atrial enlargement (LA mildly dilated) and + LVH (mild) Valvular Disease: + no significant valvular disease
--- NOTE | 2023-09-27 14:32 | Hospitalist Progress Note ---
Date of Service September 27, 2023 Assessment & Plan (1) Atrial flutter with rapid ventricular response: (2) Diabetes: (3) Hyperlipidemia: (4) Type 2 diabetes mellitus: (5) Hypertension: Plan Atrial flutter with RVR/hypertension - The patient will be admitted to telemetry for serial cardiac enzymes, serial EKG's, cardiac rhythm monitoring - Heart rate consistently under 148- 150 range, with systolic blood pressure in the 108 range. - EKG with atrial flutter at [address]-T changes - Patient did receive Lopressor 5 mg IV x 3 from the ED, and had received 500 mL normal saline IV bolus x 2. - Patient was then given a liter bolus of normal saline, 1 g magnesium sulfate IV, and Klor-Con 40 mill equivalents p.o. - He then was given diltiazem 10 mg IV push, with heart rate consistently remaining in the 140-145 range - Patient was started on heparin drip standard dose without bolus - He was then placed on amiodarone bolus/drip protocol, - Consult to cardiology, may need cardioversion. - Echocardiogram was most recent performed on 07/11/2023, with ejection fraction 50-55% - Will hold HCTZ, and decrease lisinopril from 40 mg to 20 mg every morning, to allow blood pressure room for increasing negative inotropes - Continue carvedilol 3.125 mg p.o. twice daily for now, and can be adjusted based on response to amiodarone - Of note, patient is not on propranolol 20 mg p.o. twice daily - Continue aspirin 81 mg every morning - Appreciate cardiology recommendations. Dehydration - Holding HCTZ as noted - Will have received a total of 2 L normal saline between the ED and my orders, and would likely need to have more as well - DC fluids at this time. - Diabetes mellitus - Hold metformin - Reduce glargine from 35 to 25 units subcu twice daily while in hospital - Placed on Accu-Cheks with NovoLog SSI GERD - Continue pantoprazole 40 mg daily Back pain - MRI lumbar spine without contrast ordered. Admission and Anticipated Discharge Date Admission Date: September 27, 2023 Supervising Physician Co-Signing Physician Notes Attending attestation Pt seen and examined in concert with Dr. Galvez. In agreement with the documented findings as noted in the resident documentation with any exceptions or additions as noted here. Resting comfortably in bed without acute complaint at present. On examination, S1/S2 nl RRR no MCG. CTAB. Abd NT/ND BS+ve AF/flutter with RVR - cardiology consult - continue amiodarone drip, s/p toprol and diltiazem bolus. Pending TTE and potential cardioversion today. T1DM with hyperglycemia - continue glargine and aspart, with ongoing elevation consider tighen carb ratio vs. increase basal rate Else see resident documentation as noted. Subjective Patient seen bedside this morning. Still tachycardic but without symptoms. No shortness of breath. No chest pain. No abdominal pain. Resting comfortably in his bed. Shortness of breath with exertion. Review of Systems Review of Systems: All systems reviewed & are unremarkable except as noted in Subjective Physical Exam Physical Exam: Constitutional: well-appearing, no acute distress HEENT: NCAT, no conjunctival injection CV: Tachycardic with regular rhythm, no murmur appreciated, extremities well- perfused, no LE edema Resp: CTABL, no wheezes/rales/rhonchi appreciated, no increased work of breathing GI: soft, nondistended, nontender, BS normoactive MSK: no gross deformities appreciated Skin: warm, dry, no rash appreciated Neuro: alert, oriented, no focal neurologic deficit appreciated Results & Data Results & Data Vital Signs (Past 12 Hours) Vital Signs Temp Pulse Pulse Resp BP BP Pulse Ox 09/27/23 11:08 09/27/23 10:58 36.5 C 136 H 19 137/93 99 09/27/23 09:51 137 H 18 125/99 97 09/27/23 07:07 139 H 09/27/23 06:30 137 H 18 104/75 98 09/27/23 06:21 09/27/23 06:00 142 H 15 116/84 97 09/27/23 05:30 143 H 16 114/91 98 09/27/23 05:00 140 H 20 120/91 09/27/23 04:58 140 H 09/27/23 04:30 140 H 17 108/90 98 09/27/23 04:24 140 H 133/88 09/27/23 04:00 140 H 16 133/88 94 09/27/23 03:53 141 H 112/84 09/27/23 03:48 142 H 15 112/84 96 09/27/23 03:30 139 H 16 102/81 09/27/23 03:15 139 H 117/92 09/27/23 03:14 139 H 24 117/92 100 09/27/23 03:00 134 H 28 H 09/27/23 02:37 137 H 118/87 09/27/23 02:33 137 H 118/87 Pulse Ox O2 Del Method O2 Del Method 09/27/23 11:08 Room Air 09/27/23 10:58 Room Air 09/27/23 09:51 Room Air 09/27/23 07:07 09/27/23 06:30 Room Air 09/27/23 06:21 97 Room Air 09/27/23 06:00 Room Air 09/27/23 05:30 Room Air 09/27/23 05:00 09/27/23 04:58 09/27/23 04:30 Room Air 09/27/23 04:24 09/27/23 04:00 Room Air 09/27/23 03:53 09/27/23 03:48 Room Air 09/27/23 03:30 09/27/23 03:15 09/27/23 03:14 Room Air 09/27/23 03:00 09/27/23 02:37 09/27/23 02:33 Resident Activity Tracking Resident Involvement: Resident Care Provided Care Provided: Adult Hospital Medicine
--- NOTE | 2023-09-27 15:49 | Magnetic Resonance Report ---
MRI OF THE LUMBAR SPINE WITHOUT CONTRAST CLINICAL HISTORY: Severe low back pain, loss of bladder control. COMPARISON STUDY: No previous studies for comparison. TECHNIQUE: Utilizing a 1.5 Kavya magnet and dedicated coil, multiplanar, multiecho imaging of the ruben mbar spine was performed without IV contrast. FINDINGS: For purposes of numbering on this exam, the L5-S1 disc space is assigned to axial image 27 of 30. Ali gnment of the lumbar spine is anatomic. Vertebral body heights are maintained. There is no fracture. No marrow replacement is present. There is no intracanalicular mass or fluid collection. Conus termin ates at the mid L1 level. Paravertebral soft tissues are unremarkable. L1-2: The central canal and neural foramen are patent. L2-3: The central canal and neural foramen are patent. L3-4: The central canal and neural foramen are patent. L4-5: Small central disc protrusion is present. There is mild narrowing of the central canal and late ral recesses. There is also mild bilateral neural foraminal stenosis. L5-S1: Mild disc space narrowing is present. There is a small left paracentral disc extrusion with mi ld inferior subligamentous migration this results in moderate of the left lateral recess. Central can al is patent. There is no significant neural foraminal stenosis. IMPRESSION: 1. Mild degenerative disc disease at L4-L5 and L5-S1. Mild central canal stenosis at L4-L5. 2. Small left paracentral disc extrusion at L5-S1 with inferior subligamentous migration which result s in moderate narrowing of the left lateral recess. This slightly displaces the descending left S1 ne rve root. 3. No lumbar spine fractures. ACT 112: Negative or not required by law. Electronically signed by: Jose E Borjas M.D. 09/27/2023 3:48 PM
[2023-09-27] MEDS ORDERED: PNEUMOCOCCAL VACCINE (PCV20) 20-VAL CONJ-DIP CRM/PF 0.5 ML SYR IM ONE (16:00)
--- NOTE | 2023-09-27 16:41 | Discharge Summary ---
Date of Service September 27, 2023 Admission HPI Per Admitting Provider The patient is a 53-year-old male with a past medical history including cardiomyopathy 10 years ago, hyperlipidemia, diabetes mellitus type 2, hypertension, peripheral neuropathy, blind right eye, GERD, ED and obesity. He has followed with Dr. Johnson in the outpatient setting due to concerns regarding his history of cardiomyopathy. He did undergo an echocardiogram on 07/11/2023 which showed an EF of 50-55%, and no suggestion of cardiomyopathy at that time, indicating resolution of previous noted cardiomyopathy from 10 years previously. In the emergency department this evening, he was noted to be in atrial flutter with heart rate in the 148-150 range persistently, with systolic blood pressure at that point around 108. The patient did not respond to Lopressor 5 mg IV x 3, from the ED, and was then referred for evaluation for admission to the hospitalist service. Admission Exam Per Admitting Provider The patient is awake, alert and oriented 3, well developed and well nourished, normocephalic and atraumatic, lying in bed and in no acute distress. HEENT--PERRL, EOMI, mucous membranes and oropharynx moderately dry Neck--supple. No JVD. No bruits. Thyroid normal, trachea midline, no adenopathy. Heart--tachycardic and regular. No murmurs, rubs or gallops. Lungs--clear bilaterally, no respiratory distress, no accessory muscle use. Abdomen--normal bowel sounds and soft. Nontender. Nondistended. Mildly obese Extremities--no cyanosis or clubbing. No edema. Dermatologic--normal skin turgor, normal color, no abnormal lymph nodes, no rash. Neurologic--cranial nerves II through XII grossly intact. Rheumatologic--normal range of motion. Psychiatric--normal affect. Principal Diagnosis Atrial flutter with rapid ventricular response Discharge Exam Constitutional: well-appearing, no acute distress HEENT: NCAT, no conjunctival injection CV: regular rhythm, no murmur appreciated, extremities well-perfused, no LE edema Resp: CTABL, no wheezes/rales/rhonchi appreciated, no increased work of breathing GI: soft, nondistended, nontender, BS normoactive MSK: no gross deformities appreciated Skin: warm, dry, no rash appreciated Neuro: alert, oriented, no focal neurologic deficit appreciated Discharge Data Allergies Allergy/AdvReac Type Severity Reaction Status Date / Time No Known Allergies Allergy Verified 09/04/23 15:01 Consultations 09/27/23 05:39 ED Decision to Admit Stat 09/27/23 06:21 Consult Cardiology Routine 09/27/23 12:08 Consult Anesthesiology Routine Procedures Performed Operation Date: 09/28/23 07:45 <No data on this case meets the specified criteria> Chest X-Ray 09/27/23 00:06 XR chest 1V not portable CLINICAL HISTORY: Chest pain, nonspecific. COMPARISON STUDY: Chest radiograph May 05, 2023. FINDINGS: Patient is rotated. No pneumothorax or pleural effusion is present. There is mild enlargement of the cardiac silhouette without evidence for pulmonary edema. There is no consolidation to suggest pneumonia. IMPRESSION: No acute cardiopulmonary findings. Rotated study. ACT 112: Negative or not required by law. Electronically signed by: Jose E Borjas M.D. 09/27/2023 7:07 AM Lumbar Spine MRI 09/27/23 02:04 MRI OF THE LUMBAR SPINE WITHOUT CONTRAST CLINICAL HISTORY: Severe low back pain, loss of bladder control. COMPARISON STUDY: No previous studies for comparison. TECHNIQUE: Utilizing a 1.5 Kavya magnet and dedicated coil, multiplanar, multiecho imaging of the lumbar spine was performed without IV contrast. FINDINGS: For purposes of numbering on this exam, the L5-S1 disc space is assigned to axial image 27 of 30. Alignment of the lumbar spine is anatomic. Vertebral body heights are maintained. There is no fracture. No marrow replacement is present. There is no intracanalicular mass or fluid collection. Conus terminates at the mid L1 level. Paravertebral soft tissues are unremarkable. L1-2: The central canal and neural foramen are patent. L2-3: The central canal and neural foramen are patent. L3-4: The central canal and neural foramen are patent. L4-5: Small central disc protrusion is present. There is mild narrowing of the central canal and lateral recesses. There is also mild bilateral neural foraminal stenosis. L5-S1: Mild disc space narrowing is present. There is a small left paracentral disc extrusion with mild inferior subligamentous migration this results in moderate of the left lateral recess. Central canal is patent. There is no significant neural foraminal stenosis. IMPRESSION: 1. Mild degenerative disc disease at L4-L5 and L5-S1. Mild central canal stenosis at L4-L5. 2. Small left paracentral disc extrusion at L5-S1 with inferior subligamentous migration which results in moderate narrowing of the left lateral recess. This slightly displaces the descending left S1 nerve root. 3. No lumbar spine fractures. ACT 112: Negative or not required by law. Electronically signed by: Jose E Borjas M.D. 09/27/2023 3:48 PM Ordered Studies 09/27/23 02:04 MR lumbar spine wo con Stat Hospital Course (1) Atrial flutter with rapid ventricular response: (2) Diabetes: (3) Hyperlipidemia: (4) Type 2 diabetes mellitus: (5) Hypertension: (6) Acute low back pain: Plan Atrial flutter with RVR/hypertension - The patient will be admitted to telemetry for serial cardiac enzymes, serial EKG's, cardiac rhythm monitoring - Heart rate consistently under 148- 150 range, with systolic blood pressure in the 108 range. - EKG with atrial flutter at [address]-T changes - Patient did receive Lopressor 5 mg IV x 3 from the ED, and had received 500 mL normal saline IV bolus x 2. - Patient was then given a liter bolus of normal saline, 1 g magnesium sulfate IV, and Klor-Con 40 mill equivalents p.o. - He then was given diltiazem 10 mg IV push, with heart rate consistently remaining in the 140-145 range - Patient was started on heparin drip standard dose without bolus - He was then placed on amiodarone bolus/drip protocol, - Echocardiogram was most recent performed on 07/11/2023, with ejection fraction 50-55% - Will hold HCTZ, and decrease lisinopril from 40 mg to 20 mg every morning, to allow blood pressure room for increasing negative inotropes - Continue carvedilol 3.125 mg p.o. twice daily for now, and can be adjusted based on response to amiodarone - Of note, patient is not on propranolol 20 mg p.o. twice daily - Continue aspirin 81 mg every morning - Appreciate cardiology recommendations: * Start Eliquis 5 mg twice daily and keep all medications the same. * Patient converted to sinus rhythm on his own during MRI. * Patient will follow-up with cardiology about potentially having an ablation done. -Follow-up with PCP in 1 week, sinus rhythm with heart rate in the 70s at time of discharge. Dehydration - Holding HCTZ as noted - Will have received a total of 2 L normal saline between the ED and my orders, and would likely need to have more as well - DC fluids at this time. Diabetes mellitus - Hold metformin - Reduce glargine from 35 to 25 units subcu twice daily while in hospital - Placed on Accu-Cheks with NovoLog SSI GERD - Continue pantoprazole 40 mg daily Back pain - MRI lumbar spine without contrast showed: * Mild degenerative disc disease at L4-L5 and L5-S1. Mild central canal stenosis at L4-L5. * Small left paracentral disc extrusion at L5-S1 with inferior subligamentous migration which results in moderate narrowing of the left lateral recess. This slightly displaces the descending left S1 nerve root. - Recommend outpatient Ortho follow-up. Can be ordered by PCP - Discussed red flags such as incontinence and saddle anesthesia and to return to the hospital if these occur. - Patient was having some troubles with urination prior to admission to the hospital though does not go in line with incontinence. - Discussed at PCP follow-up. Total Time Total Time Spent Total Time Spent (In Minutes): Please refer to attendings attestation Discharge Plan Discharge Items Patient Disposition: Home - Self-Care Reason For Visit: ATRIAL FLUTTER WITH RVR, DEHYDRATION Discharge Diagnosis: A flutter with RVR Activity: Resume your previous activity Non-emergency contact: Primary Care Provider and Blood Bank Supervisor Call non-emergency contact if: you have any medication questions, your pain is unusual for you and your temperature is above 101.5 Follow-up/Referrals: Victor Manuel Diallo DO [Primary Care Provider] - Aman Johnson MD [Physician] - (Discussed ablation) Diet: Carb Consistent or DM2 Addtl Attending Provider Instructions: You were admitted to the hospital for a flutter with rapid ventricular response. You were treated with rate control medication and converted on your own to sinus rhythm. A discharge summary will be sent to your primary care physician to ensure continuity of care. Please bring this discharge summary with you to your next office appointment so that your provider can review it at that time. Follow-up appointments: * Make a follow-up appointment with your PCP within the next week. It is very important that you follow up with them shortly after discharge from the hospital. * We have requested a follow-up appointment with Dr. Johnson in the next couple of weeks to discuss ablation. * Keep all your follow-up appointments as already scheduled. If you cannot make an appointment, notify your provider. Medications: Your medication list has been reviewed and reconciled upon discharge to ensure accuracy and continuity of care. An updated list of all your medications is included with your hospital discharge paperwork. Please review this list closely, and make note of any changes. * We sent a new medication called Eliquis to your pharmacy. Take Eliquis (5 mg) 1 tablet twice a day. * If you have any issues filling these prescriptions, please call [phone] and ask to leave a message for Dr. Galvez. * Take your medications as instructed; do not skip a dose of your medicines. Make sure all of your doctors know every medicine you are taking (including [id number] medicines, vitamins, and supplements). Call your primary care provider before taking any new medicines (including over- the-counter medicines, vitamins, and supplements), because some of these may interact with your current medications, or may make your symptoms worse. Tell your primary care provider if you cannot afford your medications. CONTACT YOUR PRIMARY CARE PROVIDER if you experience any of the following: * Worsening of symptoms * Fever, chills, or fatigue * Difficulty following your treatment plan, or difficulty taking medications CALL 911 OR GO TO THE EMERGENCY DEPARTMENT if you experience any of the following: * Sudden, severe abdominal pain or nausea/vomiting * Severe chest pain, or chest pain that radiates (moves) to your jaw or arm * Sudden, severe shortness of breath or difficulty breathing Thank you for allowing us to participate in your care. Pending Studies at Discharge: No Stand-Alone Forms: My [facility], Smoking Cessation Medications and DC Order Prescriptions: New Eliquis 5 mg tablet 5 mg PO BID 30 Days Qty: 60 0RF Continued tadalafil [Cialis] 10 mg tablet 10 mg PO DAILY Qty: 90 1RF sildenafil 100 mg tablet 100 mg PO DAILY PRN (Reason: sexual activity) 90 Days Qty: 18 0RF Hold Instructions: sinus issues Rx Instructions: administer 30 minutes to 4 hours before activity lisinopril 40 mg tablet 40 mg PO QAM Qty: 90 1RF hydrochlorothiazide 25 mg tablet 25 mg PO QAM Qty: 90 1RF pantoprazole 40 mg tablet,delayed release (DR/EC) 40 mg PO QAM Qty: 90 1RF insulin glargine [Lantus Solostar U-100 Insulin] 100 unit/mL (3 mL) insulin pen 35 unit SUBCUT BID Qty: 45 5RF metformin 500 mg tablet 1,000 mg PO BID Qty: 180 3RF insulin aspart U-100 [Novolog FlexPen U-100 Insulin] 100 unit/mL (3 mL) insulin pen 10 unit subcut TID Qty: 3 2RF propranolol 20 mg tablet 20 mg PO BID Qty: 60 2RF atorvastatin 40 mg tablet 40 mg PO QPM Qty: 90 1RF aspirin 81 mg tablet,delayed release (DR/EC) 81 mg PO QAM carvedilol 6.25 mg tablet 3.125 mg PO BID metformin 1,000 mg tablet 1,000 mg PO BID Discharge Orders: Discharge Order (Routine); Ordered 09/27/23 Ordered By: Abiel Galvez Admission Data Admit Date/Time: 09/27/23 05:19 Attending Provider: Aman Santos Admit Provider: Ramon Bennett Primary Care Provider: Victor Manuel Diallo Other Providers: Ramon Bennett; Rolando Rey; Claire Welsh; Yasmine Cortez; Sandra Liu; Augusta Mcfarlane; Nelson Dobbs; Derek Parker; Todd Corrales; Tao Turner; Cortney Turner; Naren Hoffmann; Sammi Anguiano; Derek Gan; Beltran Tmaez; Juan Antonio Ling; Charles Collins; Lupis Chiu; Jaleel Espino; Kat Espino; Jace Goodson; Cris Bermudez; Conrado Clemens; Valerie Bueno; Claudia Escamilla; Parrish Hernandez; Geovanna Duffy; Caitlin Ruano; Shirley Arana; Lisa Lunsford; Everett Lunsford V; Jesus Montague; Yasmine Iqbal; Frank Putnam; Lacie Kapadia; Everett Lanier; Miguel Angel Chiu; David Iverson; Chanelle Combs; Radha Jones; Everett Moon; Michael Diallo; Ingrid Shi; Abiel Anna; Jami Enamorado; Shakira Flores; Carlos Brenner; Bismark Collins; Liliana Bell; Tanja Miranda; Hu Koo; Aman Panda; Nelson Martinez Jr; Lyndsay Pickett; Gloria Domingo; Kellen Manrique; Parrish Marquez; Tao Hilario; Nabila Mishra; Gloria Sweeney; Travis Rodriguez; Reggie Luo; Claudio Chung; Santos Weaver; Delaney Hector; Marcellus Vance; Ani Lutz; Spring Silva Other Interventions: Discharge Summary Assessment (RN) Last Done: 09/27/23 17:06 Supervising Physician Co-Signing Physician Notes Pt seen and examined in concert with Dr. Galvez. In agreement with the documented findings as noted in the resident documentation with any exceptions or additions as noted here. Resting comfortably in bed without acute complaint at present. On examination, S1/S2 nl RRR no MCG. CTAB. Abd NT/ND BS+ve AF/flutter with RVR - cardiology consult - return to sinus rhythm with amiodarone drip. Started on apixaban for anticoagulation and follow up with cardiology. T1DM with hyperglycemia - resume home medication regimen, encourage follow up with primary care provider to adjust for goal of A1c 7% Else see resident documentation as noted. Total attending physician time spent with the care of this patient on the day of discharge: 40 minutes. Resident Activity Tracking Resident Involvement: Resident Care Provided Care Provided: Adult Hospital Medicine
--- NOTE | 2023-09-27 17:27 | Cardiology Consultation ---
Date of Consultation September 27, 2023 Assessment & Plan (1) Atrial flutter with rapid ventricular response: Plan 1. Atrial flutter: It seems likely this started last evening. This is based on the acute nature of the patient's symptoms. Was started on amiodarone which likely resulted in cardioversion this afternoon. He has not returned to a sinus rhythm and would seem reasonable to discharge him home. I do not think he requires any alteration in his standard medical therapy. However, he would likely benefit from catheter based therapy to eliminate recurrences. I did discuss this with the patient and his today. We can discuss this again in the outpatient setting. Since we did perform a cardioversion with amiodarone, it would seem reasonable to provide some period of anticoagulation. Does have diabetes and hypertension. I think Xarelto 20 mg daily or Eliquis 5 mg twice daily would be reasonable for 3 weeks. Hopefully we can schedule him for an ablation around that time to obviate the need for ongoing anticoagulation. We also discussed the benefits of treating his obstructive sleep apnea. History of Present Illness Reason for Consultation: Atrial flutter Requesting Physician: Sabrina Attending Physician: Aman Santos MD History of Present Illness The patient is a 53-year-old gentleman with a remote history of cardiomyopathy who presented to the hospital last evening due to symptoms of tachycardia, dyspnea and presyncope. Patient states that around 10:30 p.m. he noticed the acute onset of a rapid heartbeat. This was associated with the aforementioned symptoms. Some mild diaphoresis. Due to the persistent nature of his symptoms he presented to the emergency room was found to be in atrial flutter with rapid ventricular rate. The patient was started on amiodarone infusion and heparin. This afternoon the patient returned from an MRI of his spine and was noted to be in sinus rhythm. Leading up to his admission the patient had been feeling fine. He did not report any new symptoms. He maintains a good level of activity does not appear to be limited by dyspnea, chest pain or dizziness. Generally speaking no sense of palpitation. He has struggled with some back pain recently. He has tried some home remedies. He does have a history of obstructive sleep apnea and has not use CPAP for treatment. At the time I interviewed the patient claimed he feeling well. No sense of palpitation. No breathing difficulty. Allergies Allergy/AdvReac Type Severity Reaction Status Date / Time No Known Allergies Allergy Verified 09/04/23 15:01 Home Medications Medication Instructions Recorded Confirmed Type insulin aspart U-100 100 unit/mL 10 unit (0.1 mL) subcut TID #3 mL 10/24/21 09/04/23 Rx (3 mL) subcutaneous pen (Novolog FlexPen U-100 Insulin aspart) aspirin 81 mg tablet,delayed 81 mg PO QAM 12/29/21 09/27/23 History release tadalafil 10 mg tablet (Cialis) 10 mg PO DAILY #90 tabs 04/10/22 09/04/23 Rx sildenafil 100 mg tablet 100 mg PO DAILY PRN sexual 05/02/22 09/27/23 Rx activity 90 days #18 tabs hydrochlorothiazide 25 mg tablet 25 mg PO QAM #90 tabs 08/15/22 09/27/23 Rx lisinopril 40 mg tablet 40 mg PO QAM #90 tabs 08/15/22 09/04/23 Rx pantoprazole 40 mg tablet,delayed 40 mg PO QAM #90 tabs 09/13/22 09/04/23 Rx release insulin glargine 100 unit/mL (3 35 unit (0.35 mL) subcut BID #45 mL 10/16/22 09/04/23 Rx mL) subcutaneous pen (Lantus Solostar U-100 Insulin) metformin 500 mg tablet 1,000 mg (2 x 500 mg) PO BID #180 10/23/22 09/04/23 Rx tabs atorvastatin 40 mg tablet 40 mg PO QPM #90 tabs 09/04/23 09/04/23 Rx propranolol 20 mg tablet 20 mg PO BID #60 tabs 09/04/23 09/04/23 Rx apixaban 5 mg tablet (Eliquis) 5 mg PO BID 30 days #60 tabs 09/27/23 Rx carvedilol 6.25 mg tablet 3.125 mg PO BID 09/27/23 09/27/23 History metformin 1,000 mg tablet 1,000 mg PO BID 09/27/23 09/27/23 History Patient History Medical History Hyperlipidemia History of COVID-19 diagnosed 08/30/21 @ [place]--mild symptoms--no residual symptoms H/O staphylococcal infection left foot Blind right eye Neuropathy Hypertension Type 2 diabetes mellitus Surgical History History of incision and drainage left foot History of tooth extraction Hx of LASIK History of eye surgery right Family History Father Myocardial infarction Hypertension Grandfather (Paternal) Myocardial infarction Mother Diabetes Grandmother (Maternal) Ovarian cancer Other No family history of adverse response to anesthesia Denies family history of Prostate cancer Breast cancer Colorectal cancer Social History Smoking Status: Former smoker Second Hand Exposure: No; Do You Dip or Chew Tobacco: No; Hx Alcohol Use: Yes Alcohol type: beer and hard liquor Alcohol Intake Frequency: 4 or More x per/Week Hx Substance Use: No Preferred Language: Peruvian Communication Ability: Effective Visual Impairment: Partially Limited Hearing Ability: Normal [employer] Counter Assistant Required: No Beliefs That Will Affect Care: None marital status: Current Living Situation: Spouse current occupational status: employed 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 Mood and affect appeared normal. He answered all questions appropriately. HEENT: Pupils are equal and reactive to light and accommodation. Extraocular movements are intact. The sclerae are anicteric. Neuro: Cranial nerves intact Lungs: Clear to auscultation bilaterally. He has good air movement without use of accessory muscles. No rales wheezes or rhonchi. Cardiac: Heart demonstrates a regular rate and rhythm. Normal S1 and S2. No murmurs on examination. Pulses: The patient has palpable radial pulses bilaterally that are equal in intensity Extremities: There was no evidence of hypoperfusion. There is no cyanosis or clubbing. There is no edema. Skin: I did not appreciate any rashes on examination today. Results & Data Vital Signs (Past 12 Hours) Vital Signs Temp Pulse Pulse Resp BP BP Pulse Ox 09/27/23 17:06 36.7 C 70 20 127/98 97 09/27/23 15:44 36.7 C 70 20 127/98 97 09/27/23 11:08 09/27/23 11:00 09/27/23 10:58 36.5 C 136 H 19 137/93 99 09/27/23 09:51 137 H 18 125/99 97 09/27/23 07:07 139 H 09/27/23 06:30 137 H 18 104/75 98 09/27/23 06:21 09/27/23 06:00 142 H 15 116/84 97 09/27/23 05:30 143 H 16 114/91 98 Pulse Ox O2 Del Method O2 Del Method 09/27/23 17:06 09/27/23 15:44 Room Air 09/27/23 11:08 Room Air 09/27/23 11:00 Room Air 09/27/23 10:58 Room Air 09/27/23 09:51 Room Air 09/27/23 07:07 09/27/23 06:30 Room Air 09/27/23 06:21 97 Room Air 09/27/23 06:00 Room Air 09/27/23 05:30 Room Air Laboratory Results Abnormal Lab Results 09/27/23 09/27/23 09/27/23 00:20 09:58 11:43 WBC 8.41 RBC 5.30 Hgb 15.7 Hct 44.9 MCV 84.7 MCH 29.6 MCHC 35.0 RDW Std Deviation 42.0 RDW Coeff of Amberly 13.6 Plt Count 273 MPV 11.6 Immature Gran % (Auto) 0.4 Neut % (Auto) 57.3 Lymph % (Auto) 36.4 [place] % (Auto) 3.2 Eos % (Auto) 2.1 Baso % (Auto) 0.6 Neut # (Auto) 4.82 Lymph # (Auto) 3.06 [place] # (Auto) 0.27 Eos # (Auto) 0.18 Baso # (Auto) 0.05 Immature Gran # (Auto) 0.03 PT 10.3 INR 0.9 APTT 28 PTT Ratio 1.0 Heparin Anti-Xa, Unfract Sodium 137 Potassium 4.2 Chloride 100 Carbon Dioxide 28 Anion Gap 9 BUN 13 Creatinine 1.06 Est Cr Clr Drug Dosing 113.9 Est GFR ( Amer) 91.8 Est GFR (Non-Af Amer) 79.2 BUN/Creatinine Ratio 12.3 Glucose 286 H POC Glucose 169 H 173 H Calcium 10.0 Magnesium 1.9 Total Bilirubin 0.4 AST 27 ALT 28 Alkaline Phosphatase 83 Troponin I High Sens 8.0 Total Protein 7.9 Albumin 4.8 Globulin 3.1 Albumin/Globulin Ratio 1.5 09/27/23 09/27/23 12:48 16:09 WBC RBC Hgb Hct MCV MCH MCHC RDW Std Deviation RDW Coeff of Amberly Plt Count MPV Immature Gran % (Auto) Neut % (Auto) Lymph % (Auto) [place] % (Auto) Eos % (Auto) Baso % (Auto) Neut # (Auto) Lymph # (Auto) [place] # (Auto) Eos # (Auto) Baso # (Auto) Immature Gran # (Auto) PT INR APTT PTT Ratio Heparin Anti-Xa, Unfract 0.49 Sodium Potassium Chloride Carbon Dioxide Anion Gap BUN Creatinine Est Cr Clr Drug Dosing Est GFR ( Amer) Est GFR (Non-Af Amer) BUN/Creatinine Ratio Glucose POC Glucose 117 H Calcium Magnesium Total Bilirubin AST ALT Alkaline Phosphatase Troponin I High Sens Total Protein Albumin Globulin Albumin/Globulin Ratio Diagnostic Findings Chest x-ray obtained the time admission not reveal any acute cardiopulmonary process Echocardiogram obtained 07/11/2023: Normal LV systolic function with ejection fraction of 50-55%. Mild left atrial dilation. Borderline right ventricular enlargement. No significant valvular abnormalities. ECG Additional Comments: With a rapid ventricular response. PG Care Time/CCT Total # of Minutes Spent Total Time Spent with Patient: Total time spent is greater than 50% in coordination of care (as documented) at patient's floor/unit and/or counseling patient: Coding Level of Care Code 07759 IN/OBS CONSULT LVL 4,60M Diagnoses Atrial flutter with rapid ventricular response I48.92
--- NOTE | 2023-09-27 19:53 | Electrocardiogram Report ---
Test Reason : Blood Pressure : / mmHG Vent. Rate : 148 BPM Atrial Rate : 148 BPM P-R Int : 152 ms QRS Dur : 072 ms QT Int : 304 ms P-R-T Axes : 000 032 047 degrees QTc Int : 477 ms Atrial flutter When compared with ECG of 05-MAY-2023 17:41, Borderline criteria for Anterior infarct are no longer Present Confirmed by Aman Johnson ([id number] on 09/27/2023 7:53:20 PM Referred By: REFERRED SELF Confirmed By:Beka Johnson
[2023-09-27] MEDS ORDERED: ATORVASTATIN 40 MG TAB PO SCH (21:00)
== END 2023-09-27 17:51 | disposition home or self-care (01) | DRG 310 ==
LOC: ED 23:35 → SUATTDRO 09-27 05:19 → EDINP 09-27 05:19 → 4W 09-27 06:21

== ENCOUNTER 2023-12-10 11:50 | Inpatient (IN) ==
--- NOTE | 2023-12-10 12:07 | Emergency Department Note ---
Impression & Plan Atrial flutter with rapid ventricular response, Syncope ED Provider Note NAME: JESSICA LANDERS AGE: 53 SEX: M : 1970 ARRIVES VIA: Walk-In INFORMANT: Patient, ED PROVIDER(S): Stephan Diggs MD CHIEF COMPLAINT: Tachycardia MEDICAL DECISION MAKING: Patient presents due to concern for palpitations and elevated heart rate. Patient was noted to be in a likely flutter versus A-fib. IV was established blood work obtained patient was ordered IV Lopressor and IV fluids. Blood work showed normal white count H&H and platelet count. Patient's kidney function is unremarkable. Patient 121 but nonfasting and not DKA. LFTs unremarkable mag and Phos normal. Patient had mild improvement in his heart rate from the 160s to the 130s. Patient is currently in a flutter. I did speak the on-call rides supervisor Dr. Martin who recommended metoprolol tartrate 25 mg every 6 and heparin and they would see the patient. I did speak the on-call hospitalist Dr. Lynch and the patient was admitted to the medicine service. Critical Care: I have personally spent 35 minutes of critical care time in direct management of this patient. This includes bedside care, interpretation of diagnostic studies, and testing, discussion with consultants, patient, and family members, and other require inpatient management activities. This 35 minutes is in excess of all separately billable procedures. Discussion w/ other healthcare providers: None Prior /Outside records reviewed: I reviewed a primary care Dr. Diallo's office from November 16, 2023. Patient with known history of right eye blindness hypertension ED DM2 HLD presented to discuss weight loss medication appetite suppressant. Per review cardiology consultation from Dr. Johnson from September 27, 2023 patient did have atrial flutter with RVR. Patient was reportedly started on amiodarone at that time. Was discussed the possibility of an ablation at a later date. Differential diagnosis: Vasovagal event, dehydration, infection, hypoglycemia, electrolyte abnormalities, arrhythmia, pulmonary embolism, seizure among others were considered. Diagnostics, as interpreted by me: EKG: Tachycardic and somewhat irregular ventricular rate of 103 with normal QRS duration and normal axis. No ST elevations. Repeat EKG interpreted by me Atrial flutter with 2 1 conduction rate of 136 normal QRS and normal axis. No ST elevations. Cardiac monitoring: An order was placed for continuous cardiac monitoring. The monitor shows a rate of 135 with tachycardic and regular rhythm. Patient was placed on pulse oximetry Medical decision rules: None Imaging studies: I informally interpreted the patient's chest x-ray does not show obvious pneumonia or pneumothorax with formal report to follow. HPI: Patient presents due to concern for rapid heart rate and syncope. Patient states that he believes he passed out maybe about 50 minutes prior to arrival. Patient stated he was only out for several seconds and he does not think that he struck his head. Patient does have a prior history of atrial flutter but not yet sought any additional treatment for possible ablation as this had been discussed back in September when he was diagnosed. Patient states that he is compliant with his medications. The patient has been abstinent from alcohol during the season. The patient denies any tobacco or drug use. Patient does not complain of any chest pains but does feel easily fatigable decreased exercise tolerance and shortness of breath with exertion. No history of DVT or PE. PAST MEDICAL HISTORY: See Below PAST SURGICAL HISTORY: See Below SOCIAL HISTORY: See Below HOME MEDICATIONS: See Below ALLERGIES: See Below VITALS: See Below PHYSICAL EXAMINATION: GENERAL: NAD, non-toxic. Wearing glasses. EYE EXAM: Normal conjunctiva. PERRL, left, right cornea opacification,, no anisocoria and EOM's grossly intact w/o pain. OROPHARYNX: Moist mucus membranes, grossly normal dentition. NECK: Trachea midline, no stridor. Supple, no nuchal rigidity, no adenopathy, non-tender. No signs of meningismus. FROM of the neck with good chin to chest and neck extension. LUNGS: Clear to auscultation. Normal chest wall mechanics. HEART: Tachycardic and irregular irregular, no MRG. ABDOMEN: Abdomen soft, non-tender, no masses, no rebound or guarding. BACK: No CVA TTP. SKIN: No rashes and no bruising. UPPER EXTREMITIES: Upper extremities are grossly normal. LOWER EXTREMITIES: Grossly normal, trace pretibial edema without any calf pain or erythema. NEURO EXAM: A&O x3, cranial nerves II-XII grossly intact, normal speech, moves all 4 extremities. Past Med/Surg History Medical History Hyperlipidemia History of COVID-19 diagnosed 08/30/21 @ [place]--mild symptoms--no residual symptoms H/O staphylococcal infection left foot Blind right eye Neuropathy Hypertension Type 2 diabetes mellitus Surgical History History of incision and drainage left foot History of tooth extraction Hx of LASIK History of eye surgery right Family History Father Myocardial infarction Hypertension Grandfather (Paternal) Myocardial infarction Mother Diabetes Grandmother (Maternal) Ovarian cancer Other No family history of adverse response to anesthesia Denies family history of Prostate cancer Breast cancer Colorectal cancer Social History Smoking Status: Never smoker Second Hand Exposure: No; Do You Dip or Chew Tobacco: No; Hx Alcohol Use: Yes Alcohol type: beer and hard liquor Alcohol Intake Frequency: 4 or More x per/Week Hx Substance Use: No Preferred Language: [place] Communication Ability: Effective Visual Impairment: Partially Limited Hearing Ability: Normal Arranging Funeral Director Required: No Beliefs That Will Affect Care: None marital status: Current Living Situation: Spouse current occupational status: employed 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-[employer] How many Children do You have: 2 Feels Safe at Home: Yes Childhood Exposure to Second-Hand Smoke: No Diet: regular caffeine: Yes during the past year weight has: increased > 10 lbs Dental Care, Regularly: Yes Physical Activity Frequency: Daily Seatbelt Use: always Sunscreen Use: Yes Assistive Devices: Denture - Upper and Glasses Allergies Allergies Allergy/AdvReac Type Severity Reaction Status Date / Time No Known Allergies Allergy Verified 12/10/23 14:29 Home Meds Home Medications Medication Instructions Recorded Confirmed aspirin 81 mg tablet,delayed 81 mg PO QAM 12/29/21 12/10/23 release carvedilol 6.25 mg tablet 3.125 mg PO BID 09/27/23 12/10/23 metformin 1,000 mg tablet 1,000 mg PO BID 09/27/23 12/10/23 insulin glargine-yfgn 100 unit/mL 40 unit subcut BID 12/10/23 12/10/23 (3 mL) subcutaneous pen loratadine 10 mg tablet (Claritin) 10 mg PO DAILY 12/10/23 12/10/23 semaglutide 0.25 mg or 0.5 mg (2 0.25 mg subcut WK 12/10/23 12/10/23 mg/3 mL) subcutaneous pen injector (Ozempic) Previous Rx's Medication Instructions Recorded insulin aspart U-100 100 unit/mL 10 unit (0.1 mL) subcut TID #3 mL 10/24/21 (3 mL) subcutaneous pen (Novolog FlexPen U-100 Insulin aspart) sildenafil 100 mg tablet 100 mg PO DAILY PRN sexual 05/02/22 activity 90 days #18 tabs hydrochlorothiazide 25 mg tablet 25 mg PO QAM #90 tabs 08/15/22 lisinopril 40 mg tablet 40 mg PO QAM #90 tabs 08/15/22 atorvastatin 40 mg tablet 40 mg PO QPM #90 tabs 09/04/23 blood-glucose meter,continuous #1 ea 11/15/23 (Dexcom G7 [facility]) blood-glucose sensor (Dexcom G7 #1 ea 12/03/23 Sensor device) Results & Data (ED) Vital Signs Vital Signs - 24 hr 12/10/23 11:52 12/10/23 12:08 12/10/23 12:10 Temperature 36.6 C Temperature Source Temporal Artery Scan Pulse Rate 65 184 H Pulse Rate from SpO2 Sensor Respiratory Rate 20 19 Respiratory Effort / Characteristics Non-Labored Respiratory Depth Normal Blood Pressure 145/118 H 127/86 Blood Pressure Mean 127 99 Pulse Oximetry 98 97 97 Oxygen Delivery Method Room Air Room Air Room Air Sepsis Recent Fever Within 48 Hours No Sepsis New/Unexplained Change in Mental Status No Sepsis Action Taken by Nursing No Action Required 12/10/23 12:11 12/10/23 12:20 12/10/23 12:20 Temperature Temperature Source Pulse Rate 181 H 138 H Pulse Rate from SpO2 Sensor Respiratory Rate 16 15 Respiratory Effort / Characteristics Respiratory Depth Blood Pressure 107/82 107/82 Blood Pressure Mean 90 87 Pulse Oximetry 97 96 Oxygen Delivery Method Room Air Room Air Sepsis Recent Fever Within 48 Hours Sepsis New/Unexplained Change in Mental Status Sepsis Action Taken by Nursing 12/10/23 12:21 12/10/23 12:25 12/10/23 12:25 Temperature Temperature Source Pulse Rate 137 H 138 H Pulse Rate from SpO2 Sensor Respiratory Rate 19 Respiratory Effort / Characteristics Respiratory Depth Blood Pressure 98/70 L Blood Pressure Mean 73 Pulse Oximetry Oxygen Delivery Method Sepsis Recent Fever Within 48 Hours Sepsis New/Unexplained Change in Mental Status Sepsis Action Taken by Nursing 12/10/23 12:30 12/10/23 12:30 12/10/23 12:35 Temperature Temperature Source Pulse Rate 138 H Pulse Rate from SpO2 Sensor 137 H Respiratory Rate 25 H Respiratory Effort / Characteristics Respiratory Depth Blood Pressure 96/80 L 82/69 L Blood Pressure Mean 86 75 Pulse Oximetry 98 Oxygen Delivery Method Sepsis Recent Fever Within 48 Hours Sepsis New/Unexplained Change in Mental Status Sepsis Action Taken by Nursing 12/10/23 12:35 12/10/23 12:40 12/10/23 12:40 Temperature Temperature Source Pulse Rate 137 H 137 H Pulse Rate from SpO2 Sensor 133 H 138 H Respiratory Rate 15 19 Respiratory Effort / Characteristics Respiratory Depth Blood Pressure 95/71 L 104/76 Blood Pressure Mean 82 85 Pulse Oximetry 95 96 Oxygen Delivery Method Sepsis Recent Fever Within 48 Hours Sepsis New/Unexplained Change in Mental Status Sepsis Action Taken by Nursing 12/10/23 12:40 12/10/23 12:41 12/10/23 12:45 Temperature Temperature Source Pulse Rate 136 H 139 H Pulse Rate from SpO2 Sensor 143 H Respiratory Rate 21 Respiratory Effort / Characteristics Respiratory Depth Blood Pressure 104/76 104/76 Blood Pressure Mean 84 Pulse Oximetry 96 Oxygen Delivery Method Sepsis Recent Fever Within 48 Hours Sepsis New/Unexplained Change in Mental Status Sepsis Action Taken by Nursing 12/10/23 12:45 12/10/23 12:50 12/10/23 12:50 Temperature Temperature Source Pulse Rate 139 H Pulse Rate from SpO2 Sensor 141 H Respiratory Rate 18 Respiratory Effort / Characteristics Respiratory Depth Blood Pressure 105/72 97/77 L Blood Pressure Mean 95 81 Pulse Oximetry 97 Oxygen Delivery Method Sepsis Recent Fever Within 48 Hours Sepsis New/Unexplained Change in Mental Status Sepsis Action Taken by Nursing 12/10/23 12:55 12/10/23 12:55 12/10/23 13:00 Temperature Temperature Source Pulse Rate 138 H 136 H Pulse Rate from SpO2 Sensor 136 H 143 H Respiratory Rate 17 21 Respiratory Effort / Characteristics Respiratory Depth Blood Pressure 114/65 Blood Pressure Mean 77 Pulse Oximetry 97 92 Oxygen Delivery Method Sepsis Recent Fever Within 48 Hours Sepsis New/Unexplained Change in Mental Status Sepsis Action Taken by Nursing 12/10/23 13:06 12/10/23 13:06 12/10/23 13:10 Temperature Temperature Source Pulse Rate 136 H 137 H Pulse Rate from SpO2 Sensor Respiratory Rate 18 15 Respiratory Effort / Characteristics Respiratory Depth Blood Pressure 96/72 L Blood Pressure Mean 74 Pulse Oximetry 97 96 Oxygen Delivery Method Room Air Room Air Sepsis Recent Fever Within 48 Hours Sepsis New/Unexplained Change in Mental Status Sepsis Action Taken by Nursing 12/10/23 13:10 12/10/23 13:16 12/10/23 13:16 Temperature Temperature Source Pulse Rate 135 H Pulse Rate from SpO2 Sensor Respiratory Rate 17 Respiratory Effort / Characteristics Respiratory Depth Blood Pressure 96/72 L 80/55 L Blood Pressure Mean 76 63 Pulse Oximetry 99 Oxygen Delivery Method Room Air Sepsis Recent Fever Within 48 Hours Sepsis New/Unexplained Change in Mental Status Sepsis Action Taken by Nursing 12/10/23 13:20 12/10/23 13:26 12/10/23 13:26 Temperature Temperature Source Pulse Rate 135 H 136 H Pulse Rate from SpO2 Sensor Respiratory Rate 17 18 Respiratory Effort / Characteristics Respiratory Depth Blood Pressure Blood Pressure Mean 81 Pulse Oximetry 98 97 Oxygen Delivery Method Room Air Room Air Sepsis Recent Fever Within 48 Hours Sepsis New/Unexplained Change in Mental Status Sepsis Action Taken by Nursing 12/10/23 13:30 12/10/23 13:36 12/10/23 13:36 Temperature Temperature Source Pulse Rate 136 H 136 H Pulse Rate from SpO2 Sensor Respiratory Rate 20 19 Respiratory Effort / Characteristics Respiratory Depth Blood Pressure 109/86 Blood Pressure Mean 98 Pulse Oximetry 97 97 Oxygen Delivery Method Room Air Room Air Sepsis Recent Fever Within 48 Hours Sepsis New/Unexplained Change in Mental Status Sepsis Action Taken by Nursing 12/10/23 13:40 12/10/23 13:41 12/10/23 13:41 Temperature Temperature Source Pulse Rate 137 H 137 H Pulse Rate from SpO2 Sensor Respiratory Rate 17 15 Respiratory Effort / Characteristics Respiratory Depth Blood Pressure 108/83 Blood Pressure Mean 87 Pulse Oximetry 97 96 Oxygen Delivery Method Room Air Room Air Sepsis Recent Fever Within 48 Hours Sepsis New/Unexplained Change in Mental Status Sepsis Action Taken by Nursing 12/10/23 13:47 12/10/23 13:47 12/10/23 13:50 Temperature Temperature Source Pulse Rate 136 H 136 H Pulse Rate from SpO2 Sensor Respiratory Rate 14 17 Respiratory Effort / Characteristics Respiratory Depth Blood Pressure 89/54 L Blood Pressure Mean 65 Pulse Oximetry 98 97 Oxygen Delivery Method Room Air Room Air Sepsis Recent Fever Within 48 Hours Sepsis New/Unexplained Change in Mental Status Sepsis Action Taken by Nursing 12/10/23 13:51 12/10/23 13:51 12/10/23 13:55 Temperature Temperature Source Pulse Rate 138 H 139 H Pulse Rate from SpO2 Sensor Respiratory Rate 17 16 Respiratory Effort / Characteristics Respiratory Depth Blood Pressure 122/89 Blood Pressure Mean 103 Pulse Oximetry 98 97 Oxygen Delivery Method Room Air Room Air Sepsis Recent Fever Within 48 Hours Sepsis New/Unexplained Change in Mental Status Sepsis Action Taken by Nursing 12/10/23 13:56 12/10/23 13:56 12/10/23 14:00 Temperature Temperature Source Pulse Rate 140 H 139 H Pulse Rate from SpO2 Sensor Respiratory Rate 19 16 Respiratory Effort / Characteristics Respiratory Depth Blood Pressure 105/75 Blood Pressure Mean 97 Pulse Oximetry 96 98 Oxygen Delivery Method Room Air Room Air Sepsis Recent Fever Within 48 Hours Sepsis New/Unexplained Change in Mental Status Sepsis Action Taken by Nursing 12/10/23 14:00 12/10/23 14:05 12/10/23 14:05 Temperature Temperature Source Pulse Rate 139 H Pulse Rate from SpO2 Sensor Respiratory Rate 16 Respiratory Effort / Characteristics Respiratory Depth Blood Pressure 100/82 106/90 Blood Pressure Mean 91 97 Pulse Oximetry 97 Oxygen Delivery Method Room Air Sepsis Recent Fever Within 48 Hours Sepsis New/Unexplained Change in Mental Status Sepsis Action Taken by Retirement Medications Current Medication List: was personally reviewed by me Laboratory Data Attestation: I reviewed the patient's lab results. 12/10/23 12:16 12/10/23 12:16 Lab Results 12/10/23 Range/Units 12:16 WBC 8.54 (4.8-10.8) K/ul RBC 5.02 (4.70-6.10) M/uL Hgb 14.7 (14.0-18.0) g/dl Hct 43.6 (42.0-52.0) % MCV 86.9 (80.0-100.0) fL MCH 29.3 (25.0-34.0) pg MCHC 33.7 (32.0-36.0) g/dL RDW Std Deviation 44.9 (36.4-46.3) fL RDW Coeff of Amberly 14.1 (11.5-14.5) % Plt Count 274 (130-400) K/uL MPV 11.7 (9.4-12.4) fL Immature Gran % (Auto) 0.2 % Neut % (Auto) 53.7 % Lymph % (Auto) 39.1 % Grady % (Auto) 4.3 % Eos % (Auto) 2.0 % Baso % (Auto) 0.7 % Neut # (Auto) 4.58 (1.40-6.50) K/uL Lymph # (Auto) 3.34 (1.20-3.40) K/uL Grady # (Auto) 0.37 (0.11-0.59) K/uL Eos # (Auto) 0.17 (0.00-0.50) K/uL Baso # (Auto) 0.06 (0.00-0.20) K/uL Immature Gran # (Auto) 0.02 (0.01-0.20) K/uL Heparin Anti-Xa, Unfract < 0.10 L (0.3-0.7) IU/ml Sodium 138 (136-145) mmol/L Potassium 4.2 (3.5-5.1) mmol/L Chloride 104 (98-107) mmol/L Carbon Dioxide 28 (21-32) mmol/L Anion Gap 6 (3-11) BUN 17 (6-23) mg/dl Creatinine 1.16 (0.6-1.4) mg/dl Est Cr Clr Drug Dosing Not Reportable Est GFR ( Amer) 82.3 ml/min Est GFR (Non-Af Amer) 71.0 ml/min BUN/Creatinine Ratio 14.7 (10-20) Glucose 121 H (70-99(Fasting)) mg/dl Calcium 9.5 (8.6-10.3) mg/dl Phosphorus 3.1 (2.5-4.9) mg/dl Magnesium 1.7 (1.7-2.4) mg/dl Total Bilirubin 0.6 (0.2-1.0) mg/dl AST 18 (13-39) U/L ALT 20 (7-52) U/L Alkaline Phosphatase 81 (34-104) U/L Total Protein 7.1 (6.0-8.3) gm/dl Albumin 4.3 (3.4-5.0) gm/dl Globulin 2.8 (2.5-4.0) gm/dl Albumin/Globulin Ratio 1.5 (0.9-2) TSH 2.284 (0.300-4.500) uIu/ml Administered Medications Magnesium Sulfate/Dextrose (Magnesium Sulfate / D5w) 1 gm in 100 mls @ 50 mls/hr IV Q2H ANTOINE Stop: 12/10/23 19:29 Last Admin: 12/10/23 16:47 Dose: 50 mls/hr Documented By: CLARIBEL Insulin Aspart (Insulin Aspart Per Unit Charge) 0 units SC ACHS ANTOINE Stop: 01/09/24 16:29 Last Admin: 12/10/23 16:22 Dose: Not Given Documented By: CLARIBEL Co-signed By: DEL Discontinued Medications Heparin Sodium/Dextrose (Heparin Iv Adult Wt-Based Standard *No* Initial Bolus Protocol) 1 each IV ONE STA; Protocol Stop: 12/10/23 13:20 Last Admin: 12/10/23 14:51 Dose: Not Given Documented By: CLARIBEL Sodium Chloride (Nss) 500 mls @ 999 mls/hr IV .Q31M STA Stop: 12/10/23 12:37 Last Infusion: 12/10/23 12:41 Dose: Infused Documented By: Admin: 12/10/23 12:15 Dose: 999 mls/hr Documented By: CLARIBEL Heparin Sodium/Dextrose (Heparin Sodium/Dextrose) 25,000 units in 500 mls @ 0.02 mls/hr IV .Q24H ANTOINE; Protocol Stop: 01/09/24 13:44 Last Titration: 12/10/23 15:33 Dose: Infused Documented By: CLARIBEL Co-signed By: DEL Admin: 12/10/23 14:39 Dose: 1,550 units/hr, 31 mls/hr Documented By: CLARIBEL Co-signed By: GABRIEL Metoprolol Tartrate (Metoprolol Tartrate 1 Mg/Ml Vial) 5 mg IV Q5M PRN PRN Reason: Tachycardia Stop: 01/09/24 12:06 Last Admin: 12/10/23 12:16 Dose: 5 mg Documented By: CLARIBEL Metoprolol Tartrate (Metoprolol Tartrate 25 Mg Tab) 25 mg PO Q6H ANTOINE Stop: 01/09/24 13:29 Last Admin: 12/10/23 14:51 Dose: Not Given Documented By: CLARIBEL Imaging Data Radiologist's Impression: XR chest 1V portable HISTORY: 53 years-old Male syncope acute syncope COMPARISON: 09/27/2023 TECHNIQUE: AP view the chest FINDINGS: Cardiomediastinal and hilar silhouettes are within normal limits. No pneumothorax, pleural effusion or airspace consolidation. Bones appear grossly intact. IMPRESSION: No acute process. ACT 112: Negative or not required by law. The above report was generated using voice recognition software. It may contain grammatical, syntax or spelling errors. Electronically signed by: Sarkis Haywood M.D. 12/10/2023 4:29 PM Dictated: 12/10/23 1629 Transcribed: 12/10/231628 Discharge Plan Visit Data Chief Complaint: Cardiac Assessment Stated Complaint: DIZZINESS, ARTRIAL FLUTTER ED Provider: Stephan Diggs Discharge Problem: Atrial flutter with rapid ventricular response, Syncope Patient Disposition: Admitted As Inpatient Discharge Instructions Interventions: ED Discharge Assessment Last Done: 12/10/23 14:22 Discharge Problem: Syncope Qualifiers: Syncope type: unspecified Qualified Code(s): R55 - Syncope and collapse
[2023-12-10] MEDS: SODIUM CHLORIDE 0.9% 500 ML IV STA (12:15)
[2023-12-10] MEDS: METOPROLOL TARTRATE 1 MG/ML VIAL IV PRN (12:16)
[2023-12-10 12:36] LABS: Basophils # (auto) 0.06 K/uL (0.00-0.20); Basophils % (auto) 0.7 %; Eosinophils # (auto) 0.17 K/uL (0.00-0.50); Hematocrit (blood only) 43.6 % (42.0-52.0); Hemoglobin 14.7 g/dl (14.0-18.0); Immature Granulocytes # (auto) 0.02 K/uL (0.01-0.20); Immature Granulocytes % (auto) 0.2 %; Lymphocytes # (auto) 3.34 K/uL (1.20-3.40); Lymphocytes % (auto) 39.1 %; Mean Corpuscular Hemoglobin 29.3 pg (25.0-34.0); Mean Corpuscular Hgb Conc 33.7 g/dL (32.0-36.0); Mean Corpuscular Volume 86.9 fL (80.0-100.0); Mean Platelet Volume 11.7 fL (9.4-12.4); Monocytes # (auto) 0.37 K/uL (0.11-0.59); Monocytes % (auto) 4.3 %; Neutrophils # (auto) 4.58 K/uL (1.40-6.50); Neutrophils % (auto) 53.7 %; Platelet Count 274 K/uL (130-400); RDW Coefficient of Variation 14.1 % (11.5-14.5); RDW Standard Deviation 44.9 fL (36.4-46.3); Red Blood Count 5.02 M/uL (4.70-6.10); White Blood Count 8.54 K/ul (4.8-10.8)
[2023-12-10 12:52] LABS: Alanine Aminotransferase 20 U/L (7-52); Albumin Globulin Ratio 1.5 (0.9-2); Albumin Level 4.3 gm/dl (3.4-5.0); Alkaline Phosphatase 81 U/L (34-104); Anion Gap 6 (3-11); Aspartate Aminotransferase 18 U/L (13-39); BUN Creatinine Ratio 14.7 (10-20); Bilirubin,Total 0.6 mg/dl (0.2-1.0); Blood Urea Nitrogen 17 mg/dl (6-23); Calcium 9.5 mg/dl (8.6-10.3); Carbon Dioxide 28 mmol/L (21-32); Chloride 104 mmol/L (98-107); Est GFR (African American) 82.3 ml/min; Globulin 2.8 gm/dl (2.5-4.0); Glucose 121 mg/dl (70-99(Fasting)); Magnesium 1.7 mg/dl (1.7-2.4); Phosphorus 3.1 mg/dl (2.5-4.9); Potassium 4.2 mmol/L (3.5-5.1); Sodium 138 mmol/L (136-145); Total Protein 7.1 gm/dl (6.0-8.3)
[2023-12-10 13:05] LABS: Thyroid Stimulating Hormone 2.284 uIu/ml (0.300-4.500)
[2023-12-10 14:10] LABS: ANTI-Xa, UFH(UnfractionatedHep < 0.10 IU/ml (0.3-0.7)
--- NOTE | 2023-12-10 14:19 | History & Physical Report ---
Date of Service December 10, 2023 Assessment & Plan (1) Atrial flutter with rapid ventricular response: Plan: Metoprolol 25mg pO q6h Anticoagulation with IV heparin Consult cardiology to discuss EPS with ablation TTE not performed previously while in a. flutter therefore will order this TSH WN (2) Syncope: Plan: Suspect poor perfusion due to atrial flutter with rapid ventricular rate Blood pressure cuff does not appear to be accurate with labile blood pressures without significant symptoms in the emergency room Continue to monitor for need to reduce/stop lisinopril or hydrochlorothiazide (would favor the former due to prior heart failure) CXR pending (3) Type 2 diabetes mellitus: Plan: HbA1c 8.6 in November, no need to repeat Reduce his usual Lantus from 40 BID to 20 BID due to decreased inpatient carbs NovoLog: --Goal BSG Range: Low 110 mg/dL, High 140 mg/dL --Correction Factor: 10 mg/dL/unit --Carbohydrate ratio = 4 g/unit --BSGs ACHS if eating, q6h if npo (4) JESSE (obstructive sleep apnea): Plan: Patient reports history of this with non compliance of CPAP, no outpatient sleep study found, recommend this is repeated as outpatient Plan VTE prophylaxis - IV heparin Diet - heart healthy, type 2 diabetes Disposition - admit to PCU Admission and Anticipated Discharge Date Admission Date: December 10, 2023 History of Present Illness Chief Complaint: Palpitations Syncope Primary Care Provider: Victor Manuel Diallo DO Bryan Johnson is a 53-year-old male (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 H e reports 3 days of symptoms similar to when he was previously diagnosed with atrial flutter. Initial symptoms started Sunday night at 9 PM with chest tightness 5-6 out of 10, associated shortness of breath, lasted for hours, no radiation. On Sunday he had very limited exercise tolerance and had to stop every 5 minutes. Today when he woke up he was so fatigued he could not walk from the bed to the bathroom door. Today his symptoms are much more associated with lightheadedness. He was in the middle of the work called when he lost consciousness and fell to the ground. He believes he was unconscious for just a couple of seconds. The patient has 1 episode history of atrial flutter in September. He cardioverted using amiodarone and was discharged on Eliquis for 3 weeks. Allergies Allergy/AdvReac Type Severity Reaction Status Date / Time No Known Allergies Allergy Verified 12/10/23 14:29 Home Medications Medication Instructions Recorded Confirmed Type insulin aspart U-100 100 unit/mL 10 unit (0.1 mL) subcut TID #3 mL 10/24/21 12/10/23 Rx (3 mL) subcutaneous pen (Novolog FlexPen U-100 Insulin aspart) aspirin 81 mg tablet,delayed 81 mg PO QAM 12/29/21 12/10/23 History release sildenafil 100 mg tablet 100 mg PO DAILY PRN sexual 05/02/22 12/10/23 Rx activity 90 days #18 tabs hydrochlorothiazide 25 mg tablet 25 mg PO QAM #90 tabs 08/15/22 12/10/23 Rx lisinopril 40 mg tablet 40 mg PO QAM #90 tabs 08/15/22 12/10/23 Rx atorvastatin 40 mg tablet 40 mg PO QPM #90 tabs 09/04/23 12/10/23 Rx carvedilol 6.25 mg tablet 3.125 mg PO BID 09/27/23 12/10/23 History metformin 1,000 mg tablet 1,000 mg PO BID 09/27/23 12/10/23 History blood-glucose meter,continuous #1 ea 11/15/23 11/16/23 Rx (Dexcom G7 Museum Assistant) blood-glucose sensor (Dexcom G7 #1 ea 12/03/23 Rx Sensor device) insulin glargine-yfgn 100 unit/mL 40 unit subcut BID 12/10/23 12/10/23 History (3 mL) subcutaneous pen loratadine 10 mg tablet (Claritin) 10 mg PO DAILY 12/10/23 12/10/23 History semaglutide 0.25 mg or 0.5 mg (2 0.25 mg subcut WK 12/10/23 12/10/23 History mg/3 mL) subcutaneous pen injector (Ozempic) Past Med/Surg History Medical History Hyperlipidemia History of COVID-19 diagnosed 08/30/21 @ [place]--mild symptoms--no residual symptoms H/O staphylococcal infection left foot Blind right eye Neuropathy Hypertension Type 2 diabetes mellitus Surgical History History of incision and drainage left foot History of tooth extraction Hx of LASIK History of eye surgery right Family History Father Myocardial infarction Hypertension Grandfather (Paternal) Myocardial infarction Mother Diabetes Grandmother (Maternal) Ovarian cancer Other No family history of adverse response to anesthesia Denies family history of Prostate cancer Breast cancer Colorectal cancer Social History Smoking Status: Former smoker Second Hand Exposure: No; Do You Dip or Chew Tobacco: No; Hx Alcohol Use: Yes Alcohol type: hard liquor Alcohol Intake Frequency: 4 or More x per/Week Hx Substance Use: No Preferred Language: Icelandic Communication Ability: Effective Visual Impairment: Partially Limited Hearing Ability: Normal Java Programmer Required: No Beliefs That Will Affect Care: None marital status: Current Living Situation: Spouse current occupational status: employed 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 [employer] How many Children do You have: 2 Feels Safe at Home: Yes Childhood Exposure to Second-Hand Smoke: No Diet: regular caffeine: Yes during the past year weight has: increased > 10 lbs Dental Care, Regularly: Yes Physical Activity Frequency: Daily Seatbelt Use: always Sunscreen Use: Yes Assistive Devices: Denture - Upper and Glasses Review of Systems Review of Systems: All systems reviewed & are unremarkable except as noted in HPI & below Physical Exam Constitutional: WD/WN, vitals as above Eyes: + anicteric sclerae; normal pupil size ENMT: external ear and nose normal, oropharynx normal Respiratory: normal respiratory effort, lungs clear to auscultation Cardiovascular: Rate/Rhythm: + tachycardic and + irregularly irregular Heart Sounds: no murmur Extremities: normal capillary refill; no calf tenderness and no pedal edema Gastrointestinal (Abdomen): normal bowel sounds, soft, nontender, no hepatosplenomegaly Musculoskeletal: no cyanosis or clubbing, extremities motor strength 5/5 Skin: no rashes, warm and dry Neurologic: moves all extremities and awake; not confused Psychiatric: A+Ox3, euthymic affect Results & Data Results & Data Vital Signs (Past 12 Hours) Vital Signs Temp Pulse Resp BP Pulse Ox O2 Del Method 12/10/23 13:56 105/75 12/10/23 13:55 139 H 16 97 Room Air 12/10/23 13:51 138 H 17 98 Room Air 12/10/23 13:51 122/89 12/10/23 13:50 136 H 17 97 Room Air 12/10/23 13:47 89/54 L 12/10/23 13:47 136 H 14 98 Room Air 12/10/23 13:41 108/83 12/10/23 13:41 137 H 15 96 Room Air 12/10/23 13:40 137 H 17 97 Room Air 12/10/23 13:36 136 H 19 97 Room Air 12/10/23 13:36 109/86 12/10/23 13:30 136 H 20 97 Room Air 12/10/23 13:26 136 H 18 97 Room Air 12/10/23 13:20 135 H 17 98 Room Air 12/10/23 13:16 135 H 17 99 Room Air 12/10/23 13:16 80/55 L 12/10/23 13:10 96/72 L 12/10/23 13:10 137 H 15 96 Room Air 12/10/23 13:06 136 H 18 97 Room Air 12/10/23 13:06 96/72 L 12/10/23 13:00 136 H 21 92 12/10/23 12:55 114/65 12/10/23 12:55 138 H 17 97 12/10/23 12:50 97/77 L 12/10/23 12:50 139 H 18 97 12/10/23 12:45 105/72 12/10/23 12:45 139 H 21 96 12/10/23 12:41 136 H 104/76 12/10/23 12:40 104/76 12/10/23 12:40 137 H 19 104/76 96 12/10/23 12:40 95/71 L 12/10/23 12:35 137 H 15 95 12/10/23 12:35 82/69 L 12/10/23 12:30 138 H 25 H 98 12/10/23 12:30 96/80 L 12/10/23 12:25 138 H 19 12/10/23 12:25 98/70 L 12/10/23 12:21 137 H 12/10/23 12:20 107/82 12/10/23 12:20 138 H 15 107/82 96 Room Air 12/10/23 12:11 181 H 16 97 Room Air 12/10/23 12:10 184 H 19 127/86 97 Room Air 12/10/23 12:08 97 Room Air 12/10/23 11:52 36.6 C 65 20 145/118 H 98 Room Air Laboratory Results Abnormal lab results 12/10/23 Range/Units 12:16 Heparin Anti-Xa, Unfract < 0.10 L (0.3-0.7) IU/ml Glucose 121 H (70-99(Fasting)) mg/dl Medications Administered ER medications given: Normal saline 500 mL bolus Toprol tartrate 5 mg IV Heparin IV standard without bolus ECG Rate (beats per minute): 183 Rhythm: atrial flutter Findings: + T-wave inversion Comparison ECG Date: from (September 27, 2023) Change: the following changes noted (Rate increased, T wave inversion inferior leads) Code Status & VTE Plan Code Status Full VTE Prophylaxis Plan VTE Prophylaxis will be ordered: Yes PG Care Time/CCT Total # of Minutes Spent Total Time Spent with Patient: Total time spent is greater than 50% in coordination of care (as documented) at patient's floor/unit and/or counseling patient: Coding Level of Care Code 42782 INT INP/OBS CARE 3/75MIN Diagnoses Atrial flutter with rapid ventricular response I48.92 Syncope R55 Type 2 diabetes mellitus E11.9 JESSE (obstructive sleep apnea) G47.33
[2023-12-10] MEDS ORDERED: GLUCOSE 40% GEL 15 GM TUBE PO PRN (14:26)
[2023-12-10] MEDS ORDERED: GLUCAGON FOR INJ 1 MG VIAL SQ PRN (14:26)
[2023-12-10] MEDS ORDERED: DEXTROSE 50% 50 ML SYRINGE IV PRN (14:26)
[2023-12-10] MEDS ORDERED: CARBOHYDRATES FOR HYPOGLYCEMIA PO PRN (14:26)
[2023-12-10] MEDS ORDERED: GLUCOSE 10 TAB/TUBE PO PRN (14:26)
[2023-12-10] MEDS: HEPARIN SODIUM/DEXTROSE 25,000 UNITS/500 ML BAG IV SCH (14:39)
[2023-12-10] MEDS: Heparin IV Adult Wt-Based Standard *NO* INITIAL Bolus Protocol IV STA (14:51)
[2023-12-10] MEDS: METOPROLOL TARTRATE 25 MG TAB PO SCH (14:51)
[2023-12-10] MEDS: INSULIN ASPART PER UNIT CHARGE SC SCH (16:22)
--- NOTE | 2023-12-10 16:30 | XRay Report ---
XR chest 1V portable HISTORY: 53 years-old Male syncope acute syncope COMPARISON: 09/27/2023 TECHNIQUE: AP view the chest FINDINGS: Cardiomediastinal and hilar silhouettes are within normal limits. No pneumothorax, pleural effusion o r airspace consolidation. Bones appear grossly intact. IMPRESSION: No acute process. ACT 112: Negative or not required by law. The above report was generated using voice recognition software. It may contain grammatical, syntax o r spelling errors. Electronically signed by: Sarkis Haywood M.D. 12/10/2023 4:29 PM
[2023-12-10] MEDS: MAGNESIUM SULFATE / D5W 1 GM/100 ML BAG IV SCH (16:47)
--- NOTE | 2023-12-10 18:40 | Cardiology Consultation ---
Date of Consultation December 10, 2023 Assessment & Plan (1) Atrial flutter with rapid ventricular response: (2) Syncope: (3) Chest pain: (4) Dyspnea on exertion: (5) Hypertension: Plan ASSESSMENT/PLAN: 1. Atrial flutter with rapid ventricular response: Paroxysmal. Second known event and symptoms reminiscent of the first event earlier in 2023. Discussed findings on ECG. Cannot exclude A-fib with RVR versus atrial flutter with variable conduction initially. Has been recommended to undergo ablation with EP when he met with Dr. Johnson during last hospital stay. He is now agreeable to pursue. Fortunately, spontaneously converted. This episode was nearing 48 hours. If no contraindication, can anticoagulate for approximately 4 weeks. Continue home dose of carvedilol. Can hold off on antiarrhythmic therapy, as planning for ablation in the short-term. 2. Syncope: Likely due to such elevated heart rates and intermittent hypotension. Continue with telemetry to ensure no other significant arrhythmia or pauses. 3. Chest pain: Atypical and likely due to his elevated heart rates. Troponin ordered to ensure no significant escalation to suggest an ischemic component but if elevated, likely demand ischemia. 4. Dyspnea on exertion: Has been happening in general per patient report. Could consider outpatient noninvasive ischemic evaluation. He appears euvolemic. Today's presentation with shortness of breath likely related to his arrhythmia. 5. Hypertension: Blood pressure reasonable. Continue outpatient regimen for now. 6. Disposition: Patient care discussed with Dr. Lynch, admitting primary hospitalist service. Dr. Johnson, his primary design manager/tandem operator was also personally notified to help arrange ablation. Highly complex medical issues. Thank you for allowing me to participate in the care of your patient. Please call for any other questions or concerns. Sincerely, Oj Martin M.D. History of Present Illness Reason for Consultation: Atrial flutter Requesting Physician: Dr. Diggs Attending Physician: Otoinel Lynch MD History of Present Illness Mr. Johnson is a very pleasant 53-year-old gentleman with a history significant for atrial flutter, type 2 diabetes with neuropathy, hypertension, dyslipidemia and blindness of the right eye. His primary design manager is Dr. Johnson. He was last seen by Dr. Johnson on 09/27/2023 when he was briefly hospitalized for atrial flutter. He was briefly placed on amiodarone and converted to sinus rhythm during that hospital stay. Ablation was recommended but patient decided to hold off while he did further research. He was hoping that it would not recur. Unfortunately, he developed the same symptoms that he experienced in September 2023, on 12/08/2023 at approximately 9 PM. It was a substernal chest discomfort described as a tightness with palpitations and shortness of breath. He felt a bit better the next day but still had dyspnea on exertion and knew he was still in atrial flutter. Today, he had no chest pain but felt more shortness of breath on exertion and lightheaded. While ambulating at work, he had a syncopal event. When he presented to the emergency department, he was initially mildly hypertensive and his heart rate was 184 bpm. Initial ECG demonstrated atrial fibrillation versus atrial flutter with rapid ventricular response and variable AV conduction at 183 bpm. In the ER, he received heparin drip and metoprolol tartrate 5 mg IV x 1. Nursing staff reported that his systolic blood pressure was intermittently in the 80s and therefore, oral metoprolol was held. He typically takes carvedilol at home. During our conversation, he was noted to be in atrial flutter on telemetry and then spontaneously converted to sinus rhythm at 1454 on 12/10/2023. He felt much better immediately. Heart rate while in sinus was 98 to 100 bpm but he felt back to baseline after converting. He denies melena, hematochezia, hematuria, or other bleeding. He denies any recent fevers, chills, nausea, vomiting, or diarrhea. He does not take anticoagulation therapy in the outpatient setting. Prior to onset of palpitations, he has had occasional dyspnea on exertion in general. Review of systems: As above. Review of systems otherwise negative/unremarkable. Family history: Father from [place] at age 43. Social history: He denies tobacco, alcohol, or drug abuse. He lives at home with his . He has 2 biologic children and 3 stepchildren. 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 His was pre sent at the bedside. Allergies Allergy/AdvReac Type Severity Reaction Status Date / Time No Known Allergies Allergy Verified 12/10/23 14:29 Home Medications Medication Instructions Recorded Confirmed Type insulin aspart U-100 100 unit/mL 10 unit (0.1 mL) subcut TID #3 mL 10/24/21 12/10/23 Rx (3 mL) subcutaneous pen (Novolog FlexPen U-100 Insulin aspart) aspirin 81 mg tablet,delayed 81 mg PO QAM 12/29/21 12/10/23 History release sildenafil 100 mg tablet 100 mg PO DAILY PRN sexual 05/02/22 12/10/23 Rx activity 90 days #18 tabs hydrochlorothiazide 25 mg tablet 25 mg PO QAM #90 tabs 08/15/22 12/10/23 Rx lisinopril 40 mg tablet 40 mg PO QAM #90 tabs 08/15/22 12/10/23 Rx atorvastatin 40 mg tablet 40 mg PO QPM #90 tabs 09/04/23 12/10/23 Rx carvedilol 6.25 mg tablet 3.125 mg PO BID 09/27/23 12/10/23 History metformin 1,000 mg tablet 1,000 mg PO BID 09/27/23 12/10/23 History blood-glucose meter,continuous #1 ea 11/15/23 11/16/23 Rx (Dexcom G7 Hand Stapler) blood-glucose sensor (Dexcom G7 #1 ea 12/03/23 Rx Sensor device) insulin glargine-yfgn 100 unit/mL 40 unit subcut BID 12/10/23 12/10/23 History (3 mL) subcutaneous pen loratadine 10 mg tablet (Claritin) 10 mg PO DAILY 12/10/23 12/10/23 History semaglutide 0.25 mg or 0.5 mg (2 0.25 mg subcut WK 12/10/23 12/10/23 History mg/3 mL) subcutaneous pen injector (Ozempic) Patient History Medical History Hyperlipidemia History of COVID-19 diagnosed 08/30/21 @ [facility]--mild symptoms--no residual symptoms H/O staphylococcal infection left foot Blind right eye Neuropathy Hypertension Type 2 diabetes mellitus Surgical History History of incision and drainage left foot History of tooth extraction Hx of LASIK History of eye surgery right Family History Father Myocardial infarction Hypertension Grandfather (Paternal) Myocardial infarction Mother Diabetes Grandmother (Maternal) Ovarian cancer Other No family history of adverse response to anesthesia Denies family history of Prostate cancer Breast cancer Colorectal cancer Social History Smoking Status: Never smoker Second Hand Exposure: No; Do You Dip or Chew Tobacco: No; Hx Alcohol Use: Yes Alcohol type: beer and hard liquor Alcohol Intake Frequency: 4 or More x per/Week Hx Substance Use: No Preferred Language: Palauan Communication Ability: Effective Visual Impairment: Partially Limited Hearing Ability: Normal Practice Administrator Required: No Beliefs That Will Affect Care: None marital status: Current Living Situation: Spouse current occupational status: employed 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 Alert and oriented. HEENT: Anicteric sclera. Neck: No JVD. No bruits. Normal carotid upstrokes bilaterally. Cardiac: No ventricular heave. Regular. Normal S1-S2. No murmurs, rubs, or gallops. Pulmonary: Clear to auscultation bilaterally without wheezes, rales, or rhonchi. Abdomen: Soft, nontender, nondistended, with normoactive bowel sounds. No bruits noted. Extremities: 2+ radial pulses bilaterally. 2+ posterior tibialis pulses bilaterally. No edema or cyanosis. Psychiatric: Affect appears appropriate. Results & Data Vital Signs (Past 12 Hours) Vital Signs Temp Pulse Resp BP Pulse Ox Pulse Ox O2 Del Method 12/10/23 16:31 96 12/10/23 16:30 94 H 18 12/10/23 16:26 138/92 12/10/23 16:26 95 H 21 12/10/23 16:20 96 H 18 98 Room Air 12/10/23 16:15 105/87 12/10/23 16:15 96 H 22 97 Room Air 12/10/23 16:10 95 H 19 97 Room Air 12/10/23 16:10 116/85 12/10/23 16:05 137/93 12/10/23 16:05 94 H 20 99 Room Air 12/10/23 16:01 101/84 12/10/23 16:01 95 H 17 97 Room Air 12/10/23 16:00 94 H 20 97 Room Air 12/10/23 15:56 94 H 20 100 Room Air 12/10/23 15:56 115/82 12/10/23 15:50 113/94 12/10/23 15:50 93 H 17 97 Room Air 12/10/23 15:45 94 H 16 96 Room Air 12/10/23 15:45 121/86 12/10/23 15:41 95 H 19 96 Room Air 12/10/23 15:41 123/82 12/10/23 15:40 95 H 17 12/10/23 15:30 127/96 12/10/23 15:30 97 H 22 98 Room Air 12/10/23 15:25 131/87 12/10/23 15:25 95 H 23 99 Room Air 12/10/23 15:20 124/93 12/10/23 15:20 97 H 18 12/10/23 15:10 118/88 12/10/23 15:10 101 H 19 12/10/23 15:05 101 H 23 12/10/23 15:00 98 H 15 97 Room Air 12/10/23 15:00 100/75 12/10/23 14:55 100 H 19 98 Room Air 12/10/23 14:55 116/84 12/10/23 14:51 107/61 12/10/23 14:51 174 H 17 98 Room Air 12/10/23 14:50 147 H 24 98 Room Air 12/10/23 14:46 82/67 L 12/10/23 14:46 143 H 18 12/10/23 14:45 147 H 18 98 Room Air 12/10/23 14:44 173 H 12/10/23 14:42 152 H 23 99 Room Air 12/10/23 14:40 144 H 17 98 Room Air 12/10/23 14:37 123/94 12/10/23 14:37 152 H 19 99 Room Air 12/10/23 14:31 146 H 15 97 Room Air 12/10/23 14:31 123/84 12/10/23 14:30 138 H 18 96 Room Air 12/10/23 14:27 149 H 16 97 Room Air 12/10/23 14:27 130/64 12/10/23 14:20 140 H 15 97 Room Air 12/10/23 14:16 96/64 L 12/10/23 14:16 140 H 16 100 Room Air 12/10/23 14:10 112/81 12/10/23 14:10 140 H 18 12/10/23 14:05 106/90 12/10/23 14:05 139 H 16 97 Room Air 12/10/23 14:00 100/82 12/10/23 14:00 139 H 16 98 Room Air 12/10/23 13:56 140 H 19 96 Room Air 12/10/23 13:56 105/75 12/10/23 13:55 139 H 16 97 Room Air 12/10/23 13:51 138 H 17 98 Room Air 12/10/23 13:51 122/89 12/10/23 13:50 136 H 17 97 Room Air 12/10/23 13:47 89/54 L 12/10/23 13:47 136 H 14 98 Room Air 12/10/23 13:41 108/83 12/10/23 13:41 137 H 15 96 Room Air 12/10/23 13:40 137 H 17 97 Room Air 12/10/23 13:36 136 H 19 97 Room Air 12/10/23 13:36 109/86 12/10/23 13:30 136 H 20 97 Room Air 12/10/23 13:26 136 H 18 97 Room Air 12/10/23 13:20 135 H 17 98 Room Air 12/10/23 13:16 135 H 17 99 Room Air 12/10/23 13:16 80/55 L 12/10/23 13:10 96/72 L 12/10/23 13:10 137 H 15 96 Room Air 12/10/23 13:06 136 H 18 97 Room Air 12/10/23 13:06 96/72 L 12/10/23 13:00 136 H 21 92 12/10/23 12:55 114/65 12/10/23 12:55 138 H 17 97 12/10/23 12:50 97/77 L 12/10/23 12:50 139 H 18 97 12/10/23 12:45 105/72 12/10/23 12:45 139 H 21 96 12/10/23 12:41 136 H 104/76 12/10/23 12:40 104/76 12/10/23 12:40 137 H 19 104/76 96 12/10/23 12:40 95/71 L 12/10/23 12:35 137 H 15 95 12/10/23 12:35 82/69 L 12/10/23 12:30 138 H 25 H 98 12/10/23 12:30 96/80 L 12/10/23 12:25 138 H 19 12/10/23 12:25 98/70 L 12/10/23 12:21 137 H 12/10/23 12:20 107/82 12/10/23 12:20 138 H 15 107/82 96 Room Air 12/10/23 12:11 181 H 16 97 Room Air 12/10/23 12:10 184 H 19 127/86 97 Room Air 12/10/23 12:08 97 Room Air 12/10/23 11:52 36.6 C 65 20 145/118 H 98 Room Air O2 Del Method 12/10/23 16:31 Room Air 12/10/23 16:30 12/10/23 16:26 12/10/23 16:26 12/10/23 16:20 12/10/23 16:15 12/10/23 16:15 12/10/23 16:10 12/10/23 16:10 12/10/23 16:05 12/10/23 16:05 12/10/23 16:01 12/10/23 16:01 12/10/23 16:00 12/10/23 15:56 12/10/23 15:56 12/10/23 15:50 12/10/23 15:50 12/10/23 15:45 12/10/23 15:45 12/10/23 15:41 12/10/23 15:41 12/10/23 15:40 12/10/23 15:30 12/10/23 15:30 12/10/23 15:25 12/10/23 15:25 12/10/23 15:20 12/10/23 15:20 12/10/23 15:10 12/10/23 15:10 12/10/23 15:05 12/10/23 15:00 12/10/23 15:00 12/10/23 14:55 12/10/23 14:55 12/10/23 14:51 12/10/23 14:51 12/10/23 14:50 12/10/23 14:46 12/10/23 14:46 12/10/23 14:45 12/10/23 14:44 12/10/23 14:42 12/10/23 14:40 12/10/23 14:37 12/10/23 14:37 12/10/23 14:31 12/10/23 14:31 12/10/23 14:30 12/10/23 14:27 12/10/23 14:27 12/10/23 14:20 12/10/23 14:16 12/10/23 14:16 12/10/23 14:10 12/10/23 14:10 12/10/23 14:05 12/10/23 14:05 12/10/23 14:00 12/10/23 14:00 12/10/23 13:56 12/10/23 13:56 12/10/23 13:55 12/10/23 13:51 12/10/23 13:51 12/10/23 13:50 12/10/23 13:47 12/10/23 13:47 12/10/23 13:41 12/10/23 13:41 12/10/23 13:40 12/10/23 13:36 12/10/23 13:36 12/10/23 13:30 12/10/23 13:26 12/10/23 13:20 12/10/23 13:16 12/10/23 13:16 12/10/23 13:10 12/10/23 13:10 12/10/23 13:06 12/10/23 13:06 12/10/23 13:00 12/10/23 12:55 12/10/23 12:55 12/10/23 12:50 12/10/23 12:50 12/10/23 12:45 12/10/23 12:45 12/10/23 12:41 12/10/23 12:40 12/10/23 12:40 12/10/23 12:40 12/10/23 12:35 12/10/23 12:35 12/10/23 12:30 12/10/23 12:30 12/10/23 12:25 12/10/23 12:25 12/10/23 12:21 12/10/23 12:20 12/10/23 12:20 12/10/23 12:11 12/10/23 12:10 12/10/23 12:08 12/10/23 11:52 Laboratory Results Laboratory Results - last 24 hr 12/10/23 12/10/23 12:16 16:13 WBC 8.54 RBC 5.02 Hgb 14.7 Hct 43.6 MCV 86.9 MCH 29.3 MCHC 33.7 RDW Std Deviation 44.9 RDW Coeff of Amberly 14.1 Plt Count 274 MPV 11.7 Immature Gran % (Auto) 0.2 Neut % (Auto) 53.7 Lymph % (Auto) 39.1 [place] % (Auto) 4.3 Eos % (Auto) 2.0 Baso % (Auto) 0.7 Neut # (Auto) 4.58 Lymph # (Auto) 3.34 [place] # (Auto) 0.37 Eos # (Auto) 0.17 Baso # (Auto) 0.06 Immature Gran # (Auto) 0.02 Heparin Anti-Xa, Unfract < 0.10 L Sodium 138 Potassium 4.2 Chloride 104 Carbon Dioxide 28 Anion Gap 6 BUN 17 Creatinine 1.16 Est Cr Clr Drug Dosing Not Reportable Est GFR ( Amer) 82.3 Est GFR (Non-Af Amer) 71.0 BUN/Creatinine Ratio 14.7 Glucose 121 H POC Glucose 129 H Calcium 9.5 Phosphorus 3.1 Magnesium 1.7 Total Bilirubin 0.6 AST 18 ALT 20 Alkaline Phosphatase 81 Total Protein 7.1 Albumin 4.3 Globulin 2.8 Albumin/Globulin Ratio 1.5 TSH 2.284 Diagnostic Findings Telemetry personally reviewed as noted above in HPI. ECGs personally reviewed: ECG 12/10/2023 at 1315: Atrial flutter with 2-1 AV conduction at 136 bpm. Ordered repeat ECG which was performed at 1519: Sinus 98 bpm. Labs reviewed and notable for stable renal function, normal potassium, normal transaminase levels, normal TSH, normal blood counts. Chest x-ray 12/10/2023: No acute process per radiology. Medications Administered Current Inpatient Medications Apixaban (Apixaban 5 Mg Tablet) 5 mg PO BID ANTOINE Stop: 01/09/24 15:29 Aspirin (Aspirin 81 Mg Ectab) 81 mg PO QAM ANTOINE Stop: 01/10/24 08:59 Atorvastatin Calcium (Atorvastatin 40 Mg Tab) 40 mg PO QPM ANTOINE Stop: 01/09/24 20:59 Carvedilol (Carvedilol 3.125 Mg Tab) 3.125 mg PO BIDM ANTOINE Stop: 01/09/24 16:59 Dextrose (Dextrose 50% 50 Ml Syringe) 25 - 50 ml IV UD PRN; Protocol PRN Reason: Hypoglycemia Protocol Stop: 01/09/24 14:25 Glucagon (Glucagon For Inj 1 Mg Vial) 1 mg SQ UD PRN; Protocol PRN Reason: Hypoglycemia Protocol Stop: 01/09/24 14:25 Glucose (Glucose 10 Tab/Tube) 4 - 8 tab PO UD PRN; Protocol PRN Reason: Hypoglycemia Treatment Stop: 01/09/24 14:25 Glucose (Glucose 40% Gel 15 Gm Tube) 15 - 30 gm PO UD PRN; Protocol PRN Reason: Hypoglycemia Protocol Stop: 01/09/24 14:25 Hydrochlorothiazide (Hydrochlorothiazide 25 Mg Tab) 25 mg PO QAM ANTOINE Stop: 01/10/24 08:59 Magnesium Sulfate/Dextrose (Magnesium Sulfate / D5w) 1 gm in 100 mls @ 50 mls/hr IV Q2H ANTOINE Stop: 12/10/23 19:29 Last Admin: 12/10/23 16:47 Dose: 50 mls/hr Insulin Aspart (Insulin Aspart Per Unit Charge) 0 units SC ACHS ANTOINE Stop: 01/09/24 16:29 Last Admin: 12/10/23 16:22 Dose: Not Given Insulin Glargine (Lantus Per Unit Charge) 20 units SQ BID ANTOINE Stop: 01/09/24 20:59 Lisinopril (Lisinopril 40 Mg Tab) 40 mg PO QAM ANTOINE Stop: 01/10/24 08:59 Loratadine (Loratadine 10 Mg Tab) 10 mg PO DAILY ANTOINE Stop: 01/10/24 08:59 Metformin HCl (Metformin Hcl 500 Mg Tab) 1,000 mg PO BID ANTOINE Stop: 01/09/24 20:59 Miscellaneous (Carbohydrates For Hypoglycemia ) 15 - 30 gm PO UD PRN PRN Reason: Hypoglycemia Protocol Stop: 01/09/24 14:25 PG Care Time/CCT Total # of Minutes Spent Total Time Spent with Patient: Total time spent is greater than 50% in coordination of care (as documented) at patient's floor/unit and/or counseling patient: Coding Level of Care Code 77869 IN/OBS CONSULT LVL 5,80M Diagnoses Atrial flutter with rapid ventricular response I48.92 Syncope R55 Chest pain R07.9 Dyspnea on exertion R06.09 Hypertension I10
[2023-12-10] MEDS: APIXABAN 5 MG TABLET PO SCH (18:52)
[2023-12-10] MEDS: carvediloL 3.125 MG TAB PO SCH (19:06)
[2023-12-10 19:51] LABS: Troponin I High Sensitivity 6.3 pg/ml (0-20)
[2023-12-10] MEDS: LANTUS PER UNIT CHARGE SQ SCH (20:46)
[2023-12-10] MEDS: ATORVASTATIN 40 MG TAB PO SCH (22:26)
[2023-12-10] MEDS: metFORMIN HCL 500 MG TAB PO SCH (22:26)
[2023-12-11] MEDS: lisinopril 40 MG TAB PO SCH (08:53)
[2023-12-11] MEDS: LORATADINE 10 MG TAB PO SCH (08:53)
[2023-12-11] MEDS: hydroCHLOROthiazide 25 MG TAB PO SCH (08:53)
[2023-12-11] MEDS: ASPIRIN 81 MG ECTAB PO SCH (08:53)
--- NOTE | 2023-12-11 12:21 | Cardiology Progress Note ---
Date of Service December 11, 2023 Assessment & Plan (1) Atrial flutter with rapid ventricular response: (2) Syncope: (3) Chest pain: (4) Dyspnea on exertion: (5) Hypertension: Plan ASSESSMENT/PLAN: 1. Atrial flutter with rapid ventricular response: Paroxysmal. Second known e vent on 12/10/2023 and symptoms reminiscent of the first event earlier in 2023. Cannot exclude A-fib with RVR versus atrial flutter with variable conduction initially. Has been recommended to undergo ablation with EP when he met with Dr. Johnson during last hospital stay. He is now agreeable to pursue. Fortunately, spontaneously converted in the ER during initial cardiology consultation. This episode was nearing 48 hours. If no contraindication, can anticoagulate for approximately 4 weeks. Continue home dose of carvedilol. Can hold off on antiarrhythmic therapy, as planning for ablation in the short-term. Dr. Johnson to arrange. 2. Syncope: Likely due to such elevated heart rates and intermittent hypotension. No events on telemetry following conversion to sinus rhythm in the ER. 3. Chest pain: Atypical and likely due to his elevated heart rates. High- sensitivity troponin negative despite nearly 48 hours of symptoms. 4. Dyspnea on exertion: Has been happening in general per patient report. Could consider outpatient noninvasive ischemic evaluation. He appears euvolemic. 5. Hypertension: Blood pressure reasonable. Continue outpatient regimen for now. 6. Disposition: Patient care communicated with Dr. Andino of the primary hospitalist service. Dr. Johnson, his insulation cupola charger, to schedule outpatient ablation. Admission and Anticipated Discharge Date Admission Date: December 10, 2023 Subjective Patient seen this morning. He has not had any further palpitations. He feels well. No chest pain, shortness of breath, syncope, near syncope, edema, or bleeding. He was alone in his hospital room. Physical Exam Physical Exam: Gen.: No acute distress. Alert and oriented. HEENT: Anicteric sclera. Neck: No JVD. Cardiac: No ventricular heave. Regular. Normal S1-S2. No murmurs, rubs, or gallops. Pulmonary: Clear to auscultation bilaterally without wheezes, rales, or rhonchi. Abdomen: Soft, nontender, nondistended, with normoactive bowel sounds. No bruits noted. Extremities: 2+ radial pulses bilaterally. 2+ posterior tibialis pulses bilaterally. No edema. No cyanosis. Psychiatric: Affect appears appropriate. Results & Data Vital Signs (Past 12 Hours) Vital Signs Temp Pulse Pulse Resp BP Pulse Ox O2 Del Method 12/11/23 11:24 36.8 C 86 20 123/81 95 Room Air 12/11/23 07:41 87 12/11/23 03:43 36.6 C 87 110/70 99 Room Air 12/11/23 02:21 96 H Laboratory Results Laboratory Results - last 24 hr 12/10/23 12/10/23 12/10/23 12:16 16:13 20:39 WBC 8.54 RBC 5.02 Hgb 14.7 Hct 43.6 MCV 86.9 MCH 29.3 MCHC 33.7 RDW Std Deviation 44.9 RDW Coeff of Amberly 14.1 Plt Count 274 MPV 11.7 Immature Gran % (Auto) 0.2 Neut % (Auto) 53.7 Lymph % (Auto) 39.1 [place] % (Auto) 4.3 Eos % (Auto) 2.0 Baso % (Auto) 0.7 Neut # (Auto) 4.58 Lymph # (Auto) 3.34 [place] # (Auto) 0.37 Eos # (Auto) 0.17 Baso # (Auto) 0.06 Immature Gran # (Auto) 0.02 Heparin Anti-Xa, Unfract < 0.10 L Sodium 138 Potassium 4.2 Chloride 104 Carbon Dioxide 28 Anion Gap 6 BUN 17 Creatinine 1.16 Est Cr Clr Drug Dosing Not Reportable Est GFR ( Amer) 82.3 Est GFR (Non-Af Amer) 71.0 BUN/Creatinine Ratio 14.7 Glucose 121 H POC Glucose 129 H 56 L* Calcium 9.5 Phosphorus 3.1 Magnesium 1.7 Total Bilirubin 0.6 AST 18 ALT 20 Alkaline Phosphatase 81 Troponin I High Sens 6.3 Total Protein 7.1 Albumin 4.3 Globulin 2.8 Albumin/Globulin Ratio 1.5 TSH 2.284 12/10/23 12/11/23 12/11/23 21:14 08:01 11:54 WBC RBC Hgb Hct MCV MCH MCHC RDW Std Deviation RDW Coeff of Amberly Plt Count MPV Immature Gran % (Auto) Neut % (Auto) Lymph % (Auto) [place] % (Auto) Eos % (Auto) Baso % (Auto) Neut # (Auto) Lymph # (Auto) [place] # (Auto) Eos # (Auto) Baso # (Auto) Immature Gran # (Auto) Heparin Anti-Xa, Unfract Sodium Potassium Chloride Carbon Dioxide Anion Gap BUN Creatinine Est Cr Clr Drug Dosing Est GFR ( Amer) Est GFR (Non-Af Amer) BUN/Creatinine Ratio Glucose POC Glucose 84 107 H 131 H Calcium Phosphorus Magnesium Total Bilirubin AST ALT Alkaline Phosphatase Troponin I High Sens Total Protein Albumin Globulin Albumin/Globulin Ratio TSH Diagnostic Findings Telemetry personally reviewed: Sinus rhythm. No arrhythmias since he converted in the ER yesterday. Labs reviewed and notable for stable renal function, normal potassium, normal high-sensitivity troponin. ECG personally reviewed for 924 at 6:11 AM: NSR 88 bpm. Cannot exclude inferior infarct. Echo performed today personally evaluated: Under luminary review, LV systolic function appears low normal. No significant valvular stenosis or regurgitation. Formal review to follow. Medications Administered Current Inpatient Medications Apixaban (Apixaban 5 Mg Tablet) 5 mg PO BID ANTOINE Stop: 01/09/24 15:29 Last Admin: 12/11/23 08:53 Dose: 5 mg Aspirin (Aspirin 81 Mg Ectab) 81 mg PO QAM ANTOINE Stop: 01/10/24 08:59 Last Admin: 12/11/23 08:53 Dose: 81 mg Atorvastatin Calcium (Atorvastatin 40 Mg Tab) 40 mg PO QPM ANTOINE Stop: 01/09/24 20:59 Last Admin: 12/10/23 22:26 Dose: 40 mg Carvedilol (Carvedilol 3.125 Mg Tab) 3.125 mg PO BIDM ANTOINE Stop: 01/09/24 16:59 Last Admin: 12/11/23 08:53 Dose: 3.125 mg Dextrose (Dextrose 50% 50 Ml Syringe) 25 - 50 ml IV UD PRN; Protocol PRN Reason: Hypoglycemia Protocol Stop: 01/09/24 14:25 Glucagon (Glucagon For Inj 1 Mg Vial) 1 mg SQ UD PRN; Protocol PRN Reason: Hypoglycemia Protocol Stop: 01/09/24 14:25 Glucose (Glucose 10 Tab/Tube) 4 - 8 tab PO UD PRN; Protocol PRN Reason: Hypoglycemia Treatment Stop: 01/09/24 14:25 Glucose (Glucose 40% Gel 15 Gm Tube) 15 - 30 gm PO UD PRN; Protocol PRN Reason: Hypoglycemia Protocol Stop: 01/09/24 14:25 Hydrochlorothiazide (Hydrochlorothiazide 25 Mg Tab) 25 mg PO QAM [facility] Stop: 01/10/24 08:59 Last Admin: 12/11/23 08:53 Dose: 25 mg Insulin Aspart (Insulin Aspart Per Unit Charge) 0 units SC ACHS ANTOINE Stop: 01/09/24 16:29 Last Admin: 12/11/23 08:56 Dose: 9 units Insulin Glargine (Lantus Per Unit Charge) 20 units SQ BID ANTOINE Stop: 01/09/24 20:59 Last Admin: 12/11/23 08:56 Dose: 20 units Lisinopril (Lisinopril 40 Mg Tab) 40 mg PO QAM [facility] Stop: 01/10/24 08:59 Last Admin: 12/11/23 08:53 Dose: 40 mg Loratadine (Loratadine 10 Mg Tab) 10 mg PO DAILY ANTOINE Stop: 01/10/24 08:59 Last Admin: 12/11/23 08:53 Dose: 10 mg Metformin HCl (Metformin Hcl 500 Mg Tab) 1,000 mg PO BID [facility] Stop: 01/09/24 20:59 Last Admin: 12/11/23 08:53 Dose: 1,000 mg Miscellaneous (Carbohydrates For Hypoglycemia ) 15 - 30 gm PO UD PRN PRN Reason: Hypoglycemia Protocol Stop: 01/09/24 14:25 PG Care Time/CCT Total # of Minutes Spent Total Time Spent with Patient: Total time spent is greater than 50% in coordination of care (as documented) at patient's floor/unit and/or counseling patient: Coding Level of Care Code 03030 SUB INP/OBS CARE 2/35MIN Diagnoses Atrial flutter with rapid ventricular response I48.92 Syncope R55 Chest pain R07.9 Dyspnea on exertion R06.09 Hypertension I10
--- NOTE | 2023-12-11 13:59 | Discharge Summary ---
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 He reports 3 days of symptoms similar to when he was previously diagnosed with atrial flutter. Initial symptoms started Sunday night at 9 PM with chest tightness 5-6 out of 10, associated shortness of breath, lasted for hours, no radiation. On Sunday he had very limited exercise tolerance and had to stop every 5 minutes. Today when he woke up he was so fatigued he could not walk from the bed to the bathroom door. Today his symptoms are much more associated with lightheadedness. He was in the middle of the work called when he lost consciousness and fell to the ground. He believes he was unconscious for just a couple of seconds. The patient has 1 episode history of atrial flutter in September. He cardioverted using amiodarone and was discharged on Eliquis for 3 weeks. Discharge Data Allergies Allergy/AdvReac Type Severity Reaction Status Date / Time No Known Allergies Allergy Verified 12/10/23 14:29 Consultations 12/10/23 13:21 Consult Cardiology Routine ED Decision to Admit Stat Hospital Course (1) Atrial flutter with rapid ventricular response: Metoprolol 25mg pO q6h Anticoagulation with IV heparin Consult cardiology to discuss EPS with ablation TTE not performed previously while in a. flutter therefore will order this TSH WNL (2) Syncope: Suspect poor perfusion due to atrial flutter with rapid ventricular rate Blood pressure cuff does not appear to be accurate with labile blood pressures without significant symptoms in the emergency room Continue to monitor for need to reduce/stop lisinopril or hydrochlorothiazide (would favor the former due to prior heart failure) CXR pending (3) Type 2 diabetes mellitus: HbA1c 8.6 in November, no need to repeat Reduce his usual Lantus from 40 BID to 20 BID due to decreased inpatient carbs NovoLog: --Goal BSG Range: Low 110 mg/dL, High 140 mg/dL --Correction Factor: 10 mg/dL/unit --Carbohydrate ratio = 4 g/unit --BSGs ACHS if eating, q6h if npo (4) JESSE (obstructive sleep apnea): Patient reports history of this with non compliance of CPAP, no outpatient sleep study found, recommend this is repeated as outpatient Plan VTE prophylaxis - IV heparin Diet - heart healthy, type 2 diabetes Disposition - admit to PCU Discharge Plan Discharge Items Reason For Visit: A. FLUTTER RVR Follow-up/Referrals: Victor Manuel Diallo, [Primary Care Provider] - Medications and DC Order Prescriptions: No Action sildenafil 100 mg tablet 100 mg PO DAILY PRN (Reason: sexual activity) 90 Days Qty: 18 0RF Hold Instructions: sinus issues Rx Instructions: administer 30 minutes to 4 hours before activity lisinopril 40 mg tablet 40 mg PO QAM Qty: 90 1RF hydrochlorothiazide 25 mg tablet 25 mg PO QAM Qty: 90 1RF (DME) Dexcom G7 Ed Educational Aide Misc See Rx Instructions .ROUTE .COMPLEX Qty: 1 0RF Dose Instruction: FOR CHECK BLOOD GLUCOSE FOUR TIMES A DAY DIRECTED Rx Instructions: FOR CHECK BLOOD GLUCOSE FOUR TIMES A DAY DIRECTED (DME) Dexcom G7 Sensor Device See Rx Instructions .Route Qty: 1 0RF Rx Instructions: As directed insulin aspart U-100 [Novolog FlexPen U-100 Insulin] 100 unit/mL (3 mL) insulin pen 10 unit subcut TID Qty: 3 2RF atorvastatin 40 mg tablet 40 mg PO QPM Qty: 90 1RF aspirin 81 mg tablet,delayed release (DR/EC) 81 mg PO QAM carvedilol 6.25 mg tablet 3.125 mg PO BID metformin 1,000 mg tablet 1,000 mg PO BID loratadine [Claritin] 10 mg Tablet 10 mg PO DAILY insulin glargine-yfgn 100 unit/mL (3 mL) insulin pen 40 unit SUBCUT BID Ozempic 0.25 mg or 0.5 mg (2 mg/3 mL) pen injector 0.25 mg subcut WK Rx Instructions: Take 0.25 mg every week x4 weeks, then 0.5 mg every week. Sunday Admission Data Admit Date/Time: 12/10/23 14:18 Attending Provider: Otoniel Andino Admit Provider: Otoniel Lynch Primary Care Provider: Victor Manuel Diallo Other Providers: Otoniel Lynch; Indio Martin Coding Diagnoses Atrial flutter with rapid ventricular response I48.92 Syncope R55 Type 2 diabetes mellitus E11.9 JESSE (obstructive sleep apnea) G47.33
--- NOTE | 2023-12-11 20:01 | XCELERA ---
[id number]
--- NOTE | 2023-12-12 06:59 | Electrocardiogram Report ---
Test Reason : Blood Pressure : / mmHG Vent. Rate : 183 BPM Atrial Rate : 108 BPM P-R Int : 136 ms QRS Dur : 078 ms QT Int : 312 ms P-R-T Axes : 237 -17 012 degrees QTc Int : 544 ms Atrial fibrillation with rapid ventricular response with premature ventricular or aberrantly conducte d complexes Nonspecific ST abnormality Abnormal ECG When compared with ECG of 27-SEP-2023 00:13, Atrial fibrillation has replaced Atrial flutter Confirmed by Indio Martin ([id number]) on 12/12/2023 6:58:57 AM Referred By: REFERRED SELF Confirmed By:Indio Martin
--- NOTE | 2023-12-12 07:06 | Electrocardiogram Report ---
Test Reason : Blood Pressure : / mmHG Vent. Rate : 136 BPM Atrial Rate : 272 BPM P-R Int : 000 ms QRS Dur : 084 ms QT Int : 308 ms P-R-T Axes : 255 -17 013 degrees QTc Int : 463 ms Atrial flutter with 2:1 A-V conduction Nonspecific ST abnormality Abnormal ECG When compared with ECG of 10-DEC-2023 12:04, Nonspecific T wave abnormality, improved in Anterolateral leads Confirmed by Indio Martin ([id number]) on 12/12/2023 7:05:56 AM Referred By: REFERRED SELF Confirmed By:Indio Martin
--- NOTE | 2023-12-13 06:06 | Electrocardiogram Report ---
Test Reason : Blood Pressure : / mmHG Vent. Rate : 098 BPM Atrial Rate : 098 BPM P-R Int : 138 ms QRS Dur : 082 ms QT Int : 352 ms P-R-T Axes : 046 008 036 degrees QTc Int : 449 ms Normal sinus rhythm Possible Inferior infarct , age undetermined Abnormal ECG When compared with ECG of 10-DEC-2023 13:15, Sinus rhythm has replaced Atrial flutter Confirmed by Indio Martin ([id number]) on 12/13/2023 6:06:08 AM Referred By: REFERRED SELF Confirmed By:Indio Martin
--- NOTE | 2023-12-14 05:19 | Electrocardiogram Report ---
Test Reason : Blood Pressure : / mmHG Vent. Rate : 088 BPM Atrial Rate : 088 BPM P-R Int : 142 ms QRS Dur : 088 ms QT Int : 386 ms P-R-T Axes : 059 -04 051 degrees QTc Int : 467 ms Normal sinus rhythm Possible Inferior infarct (cited on or before 10-DEC-2023) Abnormal ECG When compared with ECG of 10-DEC-2023 15:19, No significant change was found Confirmed by Indio Martin ([id number]) on 12/14/2023 5:18:31 AM Referred By: REFERRED SELF Confirmed By:Indio Martin
== END 2023-12-11 14:58 | disposition home or self-care (01) | DRG 310 ==
LOC: ED 11:50 → EDINP 14:10 → SUATTDRO 14:10 → 4W 21:05